=== PATIENT | female | born 1985 ===

== ENCOUNTER 2019-05-19 15:38 | Outpatient (CLI) | payer BC, SELFPAY ==
[2019-05-19 17:06] LABS: HCG Quant, Pregnancy 183 mIU/mL (1-3)
== END 2019-05-19 15:58 ==
PROVIDERS: Visit Provider Nurse Practitioner Women's Health
DX: O20.9 Hemorrhage in early pregnancy, unspecified (principal)
CPT/HCPCS: 36415; 86850; 86900; 86901; 84702

== ENCOUNTER 2019-05-23 09:03 | Outpatient (CLI) | payer BC, SELFPAY ==
[2019-05-23 10:26] LABS: HCG Quant, Pregnancy 2361 mIU/mL (1-3)
== END 2019-05-23 09:23 ==
PROVIDERS: Visit Provider Nurse Practitioner Women's Health
DX: O20.9 Hemorrhage in early pregnancy, unspecified (principal)
CPT/HCPCS: 36415; 84702

== ENCOUNTER 2019-07-01 14:25 | Outpatient (CLI) | payer BC, SELFPAY ==
[2019-07-01 14:55] LABS: Abs Immature Grans 0.04 k/cumm (0.0-0.09); Absolute Basophil Count 0.02 k/cumm (0.0-0.2); Absolute Eosinophil Count 0.25 k/cumm (0.0-0.7); Absolute Lymphocyte Count 1.18 k/cumm (1.2-3.4); Absolute Monocyte Count 0.76 k/cumm (0.11-0.7); Absolute Neutrophil Count 7.61 k/cumm (1.2-6.7); Basophils % 0.2; Eosinophils % 2.5; HCT 40.3 % (36.0-46.0); HGB 13.6 g/dL (12.0-15.5); Immature Grans % 0.4; Mean Corp. HGB Concentration 33.7 g/dL (32.0-36.0); Mean Corpuscular Hemoglobin 29.8 pg (27.0-33.0); Mean Corpuscular Volume 88.4 fL (80-95); Mean Platelet Volume 9.3 fL (8.0-11.0); Monocytes % 7.7; Neutrophils % 77.2; Platelet Count 332 x1000/uL (130-400); RBC 4.56 m/cumm (4.00-5.20); RBC Distribution Width 13.4 % (11.7-14.6); White Blood Cell Count 9.86 k/cumm (4.4-10.8)
[2019-07-01 17:03] LABS: TSH (W/Ref FT4) 1.67 uIU/mL (0.36-3.74)
[2019-07-01 18:22] LABS: *AMPHETAMINES SCREEN URINE Negative (Negative); *BARBITURATES SCREEN URINE Negative (Negative); *BENZODIAZEPINES SCREEN URINE Negative (Negative); Cannabinoids THC Negative (Negative); Cocaine Screen,Urine Negative (Negative); METHADONE URINE SCREEN Negative (Negative); OPIATES URINE SCREEN Negative (Negative)
[2019-07-01 18:23] LABS: Tricyclic Antidepressants Negative (Negative)
[2019-07-02 10:08] LABS: Hepatitis B Surface Ag Negative (NEGAT)
[2019-07-02 10:51] LABS: Hepatitis C Ab w Rflx HCV PCR Negative (NEGAT)
[2019-07-02 11:00] LABS: HIV-1/2 Ag & Ab Screen Negative (NEGAT)
[2019-07-02 12:15] LABS: Rubella IgG Ab (UVM) Positive; Syphilis Serology (RPR) Negative (Negative); Varicella IgG Antibody Positive
[2019-07-02 14:51] LABS: Chlamydia Result Negative; GC Result Negative; Specimen Description CERVIX
[2019-07-05 14:59] LABS: Buprenorphine Negative; Norbuprenorphine Negative
== END 2019-07-01 14:45 ==
PROVIDERS: Visit Provider Advanced Practice Midwife
DX: Z34.91 Encounter for supervision of normal pregnancy, unspecified, first trimester (principal); Z11.59 Encounter for screening for other viral diseases; Z11.4 Encounter for screening for human immunodeficiency virus [HIV]; Z11.3 Encounter for screening for infections with a predominantly sexual mode of transmission
CPT/HCPCS: 36415; 80055; 80307; 86787; 86803; 87340; 87389; 87491; 87591; 84443; 86592; 86762; 87086; 87480; 87510; 87660

== ENCOUNTER 2019-07-08 11:17 | Outpatient (CLI) | payer BC, SELFPAY ==
[2019-07-08 11:37] LABS: Kit/Specimen SENT
[2019-07-14 17:56] LABS: Specimen WB Whole Blood
[2019-07-22 17:58] LABS: Result Summary NEGATIVE; Specimen WB Whole Blood
== END 2019-07-08 11:37 ==
PROVIDERS: Visit Provider Obstetrics & Gynecology
DX: Z34.91 Encounter for supervision of normal pregnancy, unspecified, first trimester (principal); Z36.89 Encounter for other specified antenatal screening
CPT/HCPCS: 36415; 81329; 81220

== ENCOUNTER 2019-07-11 10:06 | Outpatient (CLI) | payer BC, SELFPAY ==
[2019-07-19 15:14] LABS: Misc Referral (MAYO) See Comments
== END 2019-07-11 10:26 ==
PROVIDERS: Visit Provider Obstetrics & Gynecology
DX: Z34.91 Encounter for supervision of normal pregnancy, unspecified, first trimester (principal)
CPT/HCPCS: 81255

== ENCOUNTER 2019-08-11 01:16 | Outpatient (CLI) | payer BC, SELFPAY | END 2019-08-11 01:36 | PROVIDERS: PCP Nurse Practitioner Family; Visit Provider Obstetrics & Gynecology | DX: R01.1 Cardiac murmur, unspecified (principal); I35.0 Nonrheumatic aortic (valve) stenosis | CPT/HCPCS: 93306 ==

== ENCOUNTER 2019-08-26 00:23 | Outpatient (CLI) | payer BC, SELFPAY ==
--- NOTE | 2019-08-26 15:45 | DI.US_ITS ---
EXAM: US OB 2-3 TRIMESTER CLINICAL HISTORY: Z34.90 SUPERVISION NORMAL TECHNIQUE: Ultrasound performed using standard protocol. COMPARISON: US OB transvaginal from 05/27/2019 FINDINGS: The fetus is in variable position. The placenta is posterior. The biometric measurements correspon d to 19 weeks 0 days, consistent with previous dating. The amniotic fluid appears visually normal. No abnormalities are seen. IMPRESSION: survey is within normal limits.
== END 2019-08-26 00:43 ==
PROVIDERS: PCP Nurse Practitioner Family; Visit Provider Obstetrics & Gynecology
DX: Z34.92 Encounter for supervision of normal pregnancy, unspecified, second trimester (principal)
CPT/HCPCS: 76805

== ENCOUNTER 2019-10-29 07:59 | Outpatient (CLI) | payer BC, SELFPAY ==
[2019-10-29 11:06] LABS: Absolute Eosinophil Count 0.22 k/cumm (0.0-0.7); Absolute Monocyte Count 0.65 k/cumm (0.11-0.7); Absolute Neutrophil Count 9.33 k/cumm (1.2-6.7); Basophils % 0.3; Eosinophils % 1.9; HCT 34.7 % (36.0-46.0); HGB 11.5 g/dL (12.0-15.5); Immature Grans % 0.9; Lymphocytes % 11.2; Mean Corp. HGB Concentration 33.1 g/dL (32.0-36.0); Mean Corpuscular Hemoglobin 30.4 pg (27.0-33.0); Mean Corpuscular Volume 91.8 fL (80-95); Mean Platelet Volume 9.3 fL (8.0-11.0); Monocytes % 5.6; Neutrophils % 80.1; Platelet Count 271 x1000/uL (130-400); RBC 3.78 m/cumm (4.00-5.20); RBC Distribution Width 14.1 % (11.7-14.6); White Blood Cell Count 11.65 k/cumm (4.4-10.8)
[2019-10-29 11:07] LABS: Absolute Basophil Count 0.03 k/cumm (0.0-0.2)
[2019-10-29 11:10] LABS: Glucose,1 Hr (Glucola) 116 mg/dL (80-140)
== END 2019-10-29 08:19 ==
PROVIDERS: PCP Nurse Practitioner Family; Visit Provider Obstetrics & Gynecology
DX: Z34.92 Encounter for supervision of normal pregnancy, unspecified, second trimester (principal)
CPT/HCPCS: 36415; 82950; 85025

== ENCOUNTER 2019-11-15 08:32 | Outpatient (CLI) | payer BC, SELFPAY | END 2019-11-15 08:52 | PROVIDERS: PCP Nurse Practitioner Family; Visit Provider Internal Medicine Cardiovascular Disease | DX: R01.1 Cardiac murmur, unspecified (principal); I35.0 Nonrheumatic aortic (valve) stenosis; Z3A.30 30 weeks gestation of pregnancy | CPT/HCPCS: 93005; 93010 ==

== ENCOUNTER 2019-12-08 01:22 | Outpatient (CLI) | payer BC, SELFPAY ==
--- NOTE | 2019-12-08 07:29 | DI.US_ITS ---
APPROVED REPORT EXAM: Comprehensive 2D, Doppler, and color-flow Echocardiogram Patient Location: Out-Patient Sales Service Representative: Park Ogden RDCS (AE) Rhythm: NSR Indications: bicuspid aortic valve. Congenital insufficiency of aortic valve. Q23.1 Conclusion Left Ventricle : The left ventricle is normal size. There is normal left ventricular wall thickness. The left ventricular systolic function is normal. The left ventricular ejection fraction is within th e normal range. There is normal LV segmental wall motion. The left ventricular diastolic function is normal. LVEF is estimated to be 60-65%. Right Ventricle : The right ventricle is normal size. The right ventricular systolic function appears normal. Atria : Left atrium is very mildly dilated. The right atrium size is normal. Aortic Valve : Aortic valve is bicuspid. Trivial aortic regurgitation. Mild to moderate aortic stenos is (Mean Gradient 18mmHg). Mitral Valve : Mitral valve leaflets aremildly thickened. Mild mitral regurgitation. No evidence of m itral valve stenosis. Tricuspid Valve : The tricuspid valve is normal in structure. Mild to moderate tricuspid regurgitatio n. Great Vessels : IVC is normal in size and collapses >50% with inspiration. Estimated RVSP is 20-23 m mHg. The aortic root is normal in size. Compared to echocardiogram dated 08/11/2019: Patient's aortic valve gradient has increased slightly fr om 13 mmHg to 18 mmHg. Otherwise there are no significant changes. Wall motion Left Ventricle The left ventricle is normal size. The left ventricular systolic function is normal. The left ventric ular ejection fraction is within the normal range. There is normal left ventricular wall thickness. T here is normal LV segmental wall motion. The left ventricular diastolic function is normal. LVEF is e stimated to be 60-65%. Right Ventricle The right ventricle is normal size. The right ventricular systolic function appears normal. Atria Left atrium is very mildly dilated. The right atrium size is normal. Aortic Valve Aortic valve is bicuspid. Mild to moderate aortic stenosis (Mean Gradient 18mmHg). Trivial aortic reg urgitation. Mitral Valve Mitral valve leaflets aremildly thickened. No evidence of mitral valve stenosis. Mild mitral regurgit ation. Tricuspid Valve The tricuspid valve is normal in structure. Mild to moderate tricuspid regurgitation. Pulmonic Valve Mild to pulmonic regurgitation. Great Vessels The aortic root is normal in size. IVC is normal in size and collapses >50% with inspiration. Estimat ed RVSP is 20-23 mmHg. Pericardium There is no pericardial effusion. 2D Dimensions IVSd 0.95 cm F: 0.6-1.0 LV EDV A2C 90.6 mL PWd 0.95 cm F: 0.6 - 1.0 LV EDV A4C 105.9 mL LVDd 4.60 cm F: 3.8 - 5.2 LA Volume Index Biplane 29.4 mL/m2 LVDs 3.05 cm F: 2.2 - 3.5 LA Area A4C 19.44 cm2 Aortic Root 2.70 cm F: 2.7 - 3.3 LA Area A2C 15.39 cm2 RA Area A4C 15.38 cm2 EF AP4 64.9 % LVOT 1.95 cm (M/F) 1.5-2.5 EF AP2 64.8 % Ascending Aorta 3.00 cm F: 2.3 - 3.1 EF BP 64.5 % LVEF (Teich) 62.1 % IVC 1.29 cm LVEF (Grayson's) 64.53 % F: 54 - 74 TAPSE 2.24 cm (M/F) <1.7 LV Volume 77.53 mL F: 46 - 106 LV Volume Index 45.33 mL/m2 F: 29 - 61 FS 33.35 % LV Diastology MV E' medial 0.160 (>0.07 m/s) E/A Ratio 2.2 LV E/e MED 6.75 (<14) TR Peak Velocity 2.27 m/s MV E' lateral 0.203 (>0.1 m/s) LV E/e LAT 5.30 (<14) LA vol/ BSA A2C s A-L 23.3 mL/m2 LA vol/ BSA A4C s A-L 37.1 mL/m2 Aortic Valve LVOT Area 3.02 cm2 AoV Area Vmax 1.25 cm2 LVOT Vmax 1.15 m/s AoV Area/ BSA (Vmax) 0.73 cm2/m2 LVOT Mean Ernie. 0.83 m/s LOYD Mean Ernie. 1.24 cm2 LVOT Peak Gr. 5.3 mmHg LOYD Mean Ernie. Index 0.73 cm2/m2 LVOT Mean Gr. 3.0 mmHg LVOT VTI 0.267 m AoV Vmax 2.78 (0.5-1.3 m/s) AoV Mean Ernie. 2.00 m/s AoV Peak Grad 30.8 mmHg LVOT SV 80.72 mL AoV Mean Grad 18.0 (<5 mmHg) AoV VTI 0.611 (0.18-0.25 m) VTI Ratio 0.43 AoV Area VTI 1.32 (2.5-4.5 cm2) AoV Area/ BSA (VTI) 0.77 cm/m2 Mitral Valve MV E Max Ernie. 1.09 (0.4-1.3 m/s) RVOT Peak Gr. 2.84 mmHg MV A Velocity 0.50 (0.4-1.3 m/s) RVOT Mean Gr. 1.70 mmHg E/A Ratio 2.00 MV Decel. Time 206 (160-240 msec) MV PHT 60 msec MVA PHT 3.65 cm2 PV Peak Velocity 1.04 (0.5-1.5 m/s) RVOT Peak Ernie. 0.84 m/s RVOT VTI 0.167 m Tricuspid Valve TR P. Gradient 20.6 mmHg TV Regurg Vmax 2.27 m/s RAP Estimate 3.00 mmHg RVSP 23.6 mmHg
== END 2019-12-08 01:42 ==
PROVIDERS: PCP Nurse Practitioner Family; Visit Provider Internal Medicine Cardiovascular Disease
DX: Q23.1 Congenital insufficiency of aortic valve (principal); I35.0 Nonrheumatic aortic (valve) stenosis; I36.1 Nonrheumatic tricuspid (valve) insufficiency
CPT/HCPCS: 93306

== ENCOUNTER 2019-12-10 13:03 | Outpatient (REF) | payer BC, SELFPAY | END 2019-12-10 13:23 | LOC: LBN 13:03 | PROVIDERS: PCP Nurse Practitioner Family; Visit Provider Obstetrics & Gynecology | DX: Z34.93 Encounter for supervision of normal pregnancy, unspecified, third trimester (principal) | CPT/HCPCS: 87086 ==

== ENCOUNTER 2019-12-14 06:48 | Inpatient (IN) | payer BC, SELFPAY ==
--- NOTE | 2019-12-14 08:09 | W.PM.HP.N ---
Date of service: 12/14/19 Time of Service: 08:09 Assessment and Plan Assessment and plan (1) labor in second trimester with delivery: Status: Acute History of Present Illness History of Present Illness Chief Complaint: Premature rupture membranes at 34 W3D Narrative: Patient is a 34-year-old G1, P0 female currently 30 4W 3D EGA with a KATHY of 01/22/2020 who [facility] 5 weeks EGA. Patient called the answering service this morning to report a gush of fluid her clear amniotic fluid after voiding. On presentation to the center she was actively elsa with small amount of bloody show and obvious rupture of membranes. On physical exam she is 5 cm dilated 100% effaced -1 station. heart rate tracing was category 1 contractions every 2 to 3 minutes. Pediatric provider notified. Patient is in active labor with advanced cervical dilatation and transport to a tertiary care center is not recommended at this time. course she had a total of 10 visits, total weight gain 18 pounds, first trimester blood pressure 100/70: Third to measure blood pressure 80/60. Issues this ; 1) heart murmur she had a maternal echo that showed a bicuspid aortic valve with mild to moderate aortic stenosis no evidence of a Dialyte dilated aortic root or ascending aorta. Cardiology recommendation was to have delivery NVR H if the second internal echo was unchanged. [place] [facility] [place]. 2) normal testing for aneuploidy SMA CF. Serology and toxicology testing negative she is Rh+ antibody negative GBS RV CX was not performed until today. FOR[facility]LY [facility], [facility] Medical History (Updated 12/14/19 @ 17:27 by Ava Guy MD) Family history of thyroid disease in father (Acute) Heart murmur (Acute) Bicuspid aortic valve, Echo and ECG 2014 Migraine (Chronic) Takes NSAIDs prn labor in second trimester with delivery (Acute) Family History (Updated 07/01/19 @ 14:52 by Elda Mendosa CNM) Mother Thyroid disorder Maternal Aunt Thyroid disorder Maternal Aunt Thyroid disorder Paternal Aunt Thyroid disorder Social History (Updated 12/14/19 @ 17:15 by Ava Guy MD) Smoking/Tobacco Use Status: Never Alcohol Intake: current Alcohol Intake frequency: holidays/special occasions only Drug use: Never Household members: spouse and other Details: H-Raoul. Number of Children: 0 Education Level: college current occupation: pharmacist Sexually active: Yes Do you think of yourself as: straight/heterosexual Current gender identity: female What type of physical activity do you participate in: none Female Reproductive History Menstrual control method: none History History 1 Para 0 Hx # Term Pregnancies Multiple births Hx # Pregnancies Ectopic pregnancies AB induced Hx Number of Living Children AB spontaneous Meds Home Medications and Allergies Home Medications Medication Instructions Recorded Confirmed Type prenat.vits,aj,wet-sall-mglky 1 tab PO DAILY 05/19/19 12/10/19 History clobetasol 0.05 % topical ointment 1 applic TP BID PRN gm 11/15/19 12/10/19 History nystatin-triamcinolone 100,000 1 applic TP BID PRN gm 11/15/19 12/10/19 History unit/gram-0.1 % topical ointment Allergies Allergy/AdvReac Type Severity Reaction Status Date / Time Cephalosporins Allergy Hives Verified 12/10/19 10:12 clindamycin Allergy Skin Rash Verified 12/10/19 10:12 Penicillins Allergy Skin Rash Verified 12/10/19 10:12 Exam Const General: no acute distress (tolerating contractions.) Nutritional Appearance: average body habitus Orientation: alert, awake and oriented x3 Resp Effort & Inspection: normal respiratory effort Auscultation: clear to auscultation bilaterally Cardio Rate: regular rate Rhythm: regular rhythm Speculum Exam - Cervix: cervical os open OB/External & Speculum: external exam normal and cervical os open Manual OB Exam: dilated 5, effaced fully and station '+1 Amniotic Fluid: clear Back/Spine/Pelvis Back: no CVA tenderness Skin General skin exam: no rashes or lesions noted Neuro DTR's: Rt Patellar: 1+ and Lt Patellar: 1+ Extrem General: normal to inspection, full ROM and normal capillary refill Psych Mental Status: mental status grossly normal Results Labs Result diagrams: 12/14/19 08:09
[2019-12-14 08:12] LABS: ROM Plus Positive
[2019-12-14] MEDS: Betamet Acet/Betamet Na Ph Inj. 30 MG/5 ML 12 MG IM (08:15)
[2019-12-14] MEDS: Lactated Ringers 1,000 ML 150 ML IV (08:17)
[2019-12-14 08:22] LABS: HCT 35.2 % (36.0-46.0); HGB 11.8 g/dL (12.0-15.5); Mean Corp. HGB Concentration 33.5 g/dL (32.0-36.0); Mean Corpuscular Hemoglobin 30.3 pg (27.0-33.0); Mean Corpuscular Volume 90.5 fL (80-95); Mean Platelet Volume 9.5 fL (8.0-11.0); Platelet Count 275 x1000/uL (130-400); RBC 3.89 m/cumm (4.00-5.20); RBC Distribution Width 13.5 % (11.7-14.6); White Blood Cell Count 13.47 k/cumm (4.4-10.8)
--- NOTE | 2019-12-14 10:15 | PLAC_PTH ---
PATIENT: Anya Mustafa LOC: OBS U#:[id number] AGE/SX: 34/F ROOM: OBS.301 RE12/14/[address]: Ava Guy : 1985 BED: A DIS: 12/16/2019 SPEC #: [id number] RECD: 12/14/19 12:32 STATUS: ANALISA REQ #: [id number] BIANCA: 12/14/19 10:[address]: Ava Guy DEPT: Surgical Specimen RECD BY: Jennifer Belcher ENTERED: 12/14/19 12:33 SP TYPE: PLAC OTHR DR: None Tissues: 1 - PLACENTA (3RD TRIMESTER) Procedures: GROSS AND MICRO LEVEL 5 Comments: [id number]
[2019-12-14] MEDS: Ibuprofen 600 MG TAB PO ×3 (12:14→20:29)
[2019-12-14] MEDS: Acetaminophen 325 MG TAB 650 MG PO (12:15)
[2019-12-14] MEDS: Lidocaine 1% Multi-Dose 20 ML VIAL (15:57)
--- NOTE | 2019-12-16 09:41 | W.PM.DS.N ---
Date of service: 12/16/19 Time of Service: 09:41 DS: Diagnosis Discharge Diagnosis (1) labor without delivery, third trimester: Status: Acute Discharge Plan Disposition Patient Disposition: HOME Condition: Good Discharge Details Reason For Visit: RULE OUT RUPTURE OF MEMBRANES Admit Date/Time: 12/14/19 10:56 Admit Provider: Ava Guy Attending Provider: Ava Guy Primary Care Provider: None,None Hospital Course Hospital Course: Patient was admitted in active labor on the morning of 12/14/2019. She went on to deliver vaginally a male named Kendellram of a second-degree perineal laceration. A Kiwi cup vacuum was used to bring the infant from a +2 to +3 station after 1 hour of maternal expulsive efforts had not brought the vertex further into the canal. After that she was able to push for another hour and have a successful vaginal delivery. If it remains hospitalized secondary to prematurity issues. Patient will board with the continue to be supported with breast-feeding and caring for her . Plan is [facility] and she will have periodic informal follow-ups during her hospital stay caring for her infant. She does not require any postoperative analgesia. Home Meds and New Rx's Prescriptions: No Action prenat.vits,aj,kjg-cgyt-bybni tablet 1 tab PO DAILY RF: 0 clobetasol 0.05 % ointment 1 applic TP BID PRNRF: 0 nystatin-triamcinolone 100,000-0.1 unit/gram-% ointment 1 applic TP BID PRNRF: 0 Discharge Instructions Stand Alone Forms: BC Instructions, BC Post Vaginal Deliver Activity:: Activity as Tolerated Equipment/Supplies:: No Equipment Needed Diet:: As Tolerated Discharge Orders Discharge Orders: Discharge Order (Routine); Ordered 12/16/19 Ordered By: Ava Guy DS: Summary Status at Discharge Functional status at discharge: independent ambulation Overall status at discharge: patient is progressing back to baseline Mental Status: mental status grossly normal Speech and Movement: speech and movement normal Mood: congruent mood Affect: normal affect Exam Const General: comfortable Nutritional Appearance: overweight Orientation: awake and oriented x3 Resp Effort & Inspection: normal respiratory effort Auscultation: clear to auscultation bilaterally Cardio Rate: regular rate Rhythm: regular rhythm GI Palpation: soft, no hepatosplenomegaly and other Rectal Exam - female: deferred Other: Fundal height 3 cm below umbilicus External Female Exam: external appearance normal, no external swelling and no lesions Skin General skin exam: no rashes or lesions noted Extrem General: normal to inspection Psych Appearance: grossly normal Mental Status: mental status grossly normal Speech and Movement: speech and movement normal Mood: congruent mood Affect: normal affect DS: Data Vitals/I&O Vitals and I&O: Vital Signs Pain Level 3 12/14/19 12:14 Intake & Output 12/15/19 12/15/19 12/16/19 11:59 23:59 11:59 Weight 168 lb Data Completed and Pending Labs on day of discharge: Labs from last 24 hours 12/16/19 08:46 Patient ABO/Rh Cancelled Direct Antiglob Test Cancelled 12/14/19 07:50 Endocervix Group B Streptococcus Screen (MARQUISE) - Pending Preliminary micro results at discharge 12/14/19 07:50 Group B Streptococcus Screen (MARQUISE) - Pending Endocervix [facility] Medical History (Updated 12/16/19 @ 09:43 by Ava Guy MD) Family history of thyroid disease in father (Acute) Heart murmur (Acute) Bicuspid aortic valve, Echo and ECG 2014 Migraine (Chronic) Takes NSAIDs prn labor without delivery, third trimester (Acute) 12/14/2019. at 30 4W 3D EGA. Family History (Updated 07/01/19 @ 14:52 by Elda Mendosa CNM) Mother Thyroid disorder Maternal Aunt Thyroid disorder Maternal Aunt Thyroid disorder Paternal Aunt Thyroid disorder Social History (Updated 12/16/19 @ 09:44 by Ava Guy MD) Smoking/Tobacco Use Status: Never Alcohol Intake: current Alcohol Intake frequency: holidays/special occasions only Drug use: Never Household members: spouse and other Details: H-Raoul, S-Ephram Number of Children: 1 Education Level: college current occupation: pharmacist Sexually active: Yes Do you think of yourself as: straight/heterosexual Current gender identity: female What is your relationship status?: Panel score (0-1 are the most socially isolated patients): 1 What type of physical activity do you participate in: none Female Reproductive History Menstrual control method: none History History 1 Para 1 Hx # Term Pregnancies Multiple births Hx # Pregnancies 1 Ectopic pregnancies AB induced Hx Number of Living Children 1 AB spontaneous Past Pregnancies Del. Date GA/Weeks # Outcome Route Wgt Sex Labor Lgth Anesthesia Location Prov Complic 12/14/19 34 Successful vaginal 4 lb 9 oz Male 4 hours AOC Delivery Date: 12/14/19 On 12/16/19 @ 09:47 Ava Guy Vacuum assisted vaginal delivery. Male Apgars 4 and 9. Placenta with marginal cord insertion. Ephram.
== END 2019-12-16 13:05 | disposition home or self-care (01) | DRG 806 ==
PROVIDERS: Admitting Provider Obstetrics & Gynecology Gynecology; Visit Provider Obstetrics & Gynecology Gynecology
DX: O60.14X0 Preterm labor third trimester with preterm delivery third trimester, not applicable or unspecified (principal); Q23.1 Congenital insufficiency of aortic valve; Z37.0 Single live birth; Q23.0 Congenital stenosis of aortic valve; O42.012 Preterm premature rupture of membranes, onset of labor within 24 hours of rupture, second trimester; Z36.85 Encounter for antenatal screening for Streptococcus B; Z3A.34 34 weeks gestation of pregnancy
CPT/HCPCS: 36415; 84112; 85027; 86850; 86900; 86901; NC; 86880; 87081; 88307; J0702; J3490

== ENCOUNTER 2020-06-21 02:39 | Outpatient (CLI) | payer BC, SELFPAY ==
[2020-06-21 16:25] LABS: D-Dimer (UVM) <200 ng/mL DDU (<=230); PTT (UVM) 35 secs (26-37)
[2020-06-22 09:28] LABS: Antithrombin 3, Funct. 117 % (85-125)
[2020-06-23 09:44] LABS: LA Cascade Summary (See Note); Silica Clotting Time 39.9 secs (30.2-48.4)
[2020-06-28 09:54] LABS: Protein C, Functional 134 % (71-199); Protein S, Functional 95 % (64-147)
== END 2020-06-21 02:59 ==
PROVIDERS: PCP Nurse Practitioner Family; Visit Provider Obstetrics & Gynecology Gynecology
DX: Z87.51 Personal history of pre-term labor (principal)
CPT/HCPCS: 36415; 81240; 81241; 85300; 85303; 85306; 85610; 85613; 85730; 85732; 86147; 85240; 85379

== ENCOUNTER 2020-09-29 02:01 | Outpatient (CLI) | payer BC, SELFPAY ==
[2020-09-29 09:48] LABS: TSH 1.39 uIU/mL (0.36-3.74)
[2020-09-30 18:15] LABS: Tissue Transglutaminase Ab IgA <1.2 U/mL
[2020-10-12 17:05] LABS: IgA 213 mg/dL (61-356); IgG 1260 mg/dL (767-1590)
== END 2020-09-29 02:21 ==
PROVIDERS: PCP Nurse Practitioner Family; Visit Provider Internal Medicine Gastroenterology
DX: K58.9 Irritable bowel syndrome, unspecified (principal)
CPT/HCPCS: 36415; 82784; 83516; 84443

== ENCOUNTER 2021-01-22 00:47 | Outpatient (CLI) | payer BC, SELFPAY ==
--- NOTE | 2021-01-22 07:00 | DI.MAMMO_ITS ---
EXAM: MG MAMMO DIAGNOSTIC BI CLINICAL HISTORY: breast rash - bilateral. finished 10/2020,r23.4. TECHNIQUE: Unilateral spot mammographic images were obtained with 3D [employer] and util izing computer aided detection (CAD). COMPARISON: None. This is a baseline mammogram on a 35-year-old patient who just finished breast fe eding. She has occasional breast rashes and nonbloody bilateral discharge. She does not feel a lump . FINDINGS: There are no CAD designations There are no spiculated masses nor malignant-appearing microcalcification groups in either breast. T here is no significant architectural distortion or skin thickening-traction. IMPRESSION: Moderately dense fibroglandular tissue. No obvious radiographic evidence of malignancy. If clinically indicated this patient [facility] She is apparently quite concerned. BI-RADS Category 2 - Benign Findings Breast Density - Category C - Heterogeneously dense Breast density Category C or D implies that the patient has dense breast tissue. Dense breast tissue can make it harder to find cancer on a mammogram. Dense breast tissue is also associated with an incr eased risk of breast cancer. This information about the result of the mammogram report was provided to the patient to raise their awareness. Use this report when you speak with the patient about their risks for breast cancer, which includes their family history. At that time, you may recommend additional screening tests (Ultrasoun d or MRI) as these tests may add significant information. A negative radiographic report should not delay biopsy if a dominant or clinically suspicious mass is present. Up to ten percent of cancers are not identified on mammography. A negative report may reinforce clinical impression. Adenosis and dense breasts may obscure an underlying neoplasm. False positive reports average 6 to 10%. Patient will receive a letter notifying them of these results.
== END 2021-01-22 01:07 ==
PROVIDERS: PCP Nurse Practitioner Family; Visit Provider Obstetrics & Gynecology Gynecology
DX: R21 Rash and other nonspecific skin eruption (principal); N64.59 Other signs and symptoms in breast; Z12.31 Encounter for screening mammogram for malignant neoplasm of breast
CPT/HCPCS: 77062; 77066; G0279

== ENCOUNTER 2021-05-25 03:07 | Outpatient (CLI) | payer BC, SELFPAY ==
--- NOTE | 2021-05-25 07:00 | DI.US_ITS ---
APPROVED REPORT EXAM: Comprehensive 2D, Doppler, and color-flow Echocardiogram Patient Location: Out-Patient Safety Compliance Specialist: Theresa Grimes RDCS (AE) Indications: Bicuspid aortic valve, Murmur Other Information Study Quality: Good Conclusion Left Ventricle : The left ventricle is normal size. The left ventricular ejection fraction is within the normal range. There is normal left ventricular wall thickness. There is normal LV segmental wall motion. The left ventricular diastolic function is normal. LVEF is 60%. Right Ventricle : The right ventricle is normal size. The right ventricular systolic function is norm al. The RVSP is 20 mmHg. Atria : The left atrium size is normal. The right atrium size is normal. Aortic Valve : Aortic valve is bicuspid. No aortic regurgitation is present. No hemodynamically signi ficant valvular aortic stenosis. Great Vessels : The aortic root is normal in size. The ascending aorta is normal in size. Aortic arch is normal in caliber. IVC is normal in size and collapses >50% with inspiration. Compared to echocardiogram from 12/08/2019, the mean gradient has decreased from 18 millimeters mercur y to 12 mmHg. This is similar to her study dated from 08/11/2019. Wall motion Left Ventricle The left ventricle is normal size. The left ventricular ejection fraction is within the normal range. There is normal left ventricular wall thickness. There is normal LV segmental wall motion. The left ventricular diastolic function is normal. There is no ventricular septal defect visualized. LVEF is 6 0%. Right Ventricle The right ventricle is normal size. The right ventricular systolic function is normal. The RVSP is 20 mmHg. Atria The left atrium size is normal. The right atrium size is normal. The interatrial septum is intact wit h no evidence for an atrial septal defect. Aortic Valve Aortic valve is bicuspid. No hemodynamically significant valvular aortic stenosis. No aortic regurgit ation is present. Mitral Valve The mitral valve is normal in structure. No evidence of mitral valve stenosis. Trace mitral regurgita tion. Tricuspid Valve The tricuspid valve is normal in structure. There is no tricuspid valve stenosis. Trace to mild tricu spid regurgitation. Pulmonic Valve The pulmonary valve is normal in structure. There is no pulmonic valvular stenosis. There is no pulmo romeo valvular regurgitation. Great Vessels The aortic root is normal in size. The ascending aorta is normal in size. Aortic arch is normal in ca liber. IVC is normal in size and collapses >50% with inspiration. Pericardium There is no pericardial effusion. 2D Dimensions IVSD d PLAX 0.71 cm F: 0.6-1.0 LV Vol A2C d MOD 90.3 mL LVPW d PLAX 0.71 cm F: 0.6 - 1.0 LV Vol A4C d MOD 93.5 mL LVID d PLAX 4.21 cm F: 3.8 - 5.2 LA vol/ BSA A2C s A-L 19.5 mL/m2 LVDs 2.85 cm F: 2.2 - 3.5 LA vol/ BSA A4C s A-L 17.9 mL/m2 Ao Root d 2.52 cm F: 2.7 - 3.3 LA Vol/ BSA Biplane s A-L 19.0 mL/m2 RA Area A4C 8.72 cm2 LA Area A4C s MOD 12.77 cm2 RA Vol/ BSA A4C s A-L 11.1 mL/m2 LA Area A2C s MOD 13.10 cm2 Ao Asc Diam d 3.08 cm F: 2.3 - 3.1 LV EF A4C MOD 60.7 % LV EF Teichholz 60.7 % LV EF A2C MOD 60.2 % LVEF (Grayson's) 59.51 % F: 54 - 74 LV EF Biplane MOD 59.5 % LV Volume 73.75 mL F: 46 - 106 SV 54.68 mL LV Volume Index 44.69 mL/m2 F: 29 - 61 SV Index 33.10 mL/m2 LV Vol Biplane MOD 91.9 mL FS 32.10 % M-Mode TAPSE 2.11 cm (M/F) >1.7 LV Diastology MV E' medial 0.121 (>0.07 m/s) E/A Ratio 2.0 LV E/e MED 7.40 (<14) MV E Vmax 0.90 (0.4-1.3 m/s) MV E' lateral 0.162 (>0.1 m/s) MV A Vmax 0.45 (0.4-1.3 m/s) LV E/e LAT 5.50 (<14) MV E/A Ratio 1.94 MV E/E' medial 7.42 MV E/E' lateral 5.54 Aortic Valve LVOT Area 2.63 cm2 AoV Area Vmax 1.29 cm2 LVOT Vmax 1.12 m/s AoV Area/ BSA (Vmax) 0.78 cm2/m2 LVOT Mean Ernie. 0.78 m/s LODY Mean Ernie. 1.21 cm2 LVOT Peak Grad 5.0 mmHg LOYD Mean Ernie. Index 0.73 cm2/m2 LVOT Mean Grad 2.8 mmHg LVOT VTI 0.252 m LVOT Diam s 1.80 cm AoV Vmax 2.28 m/s Velocity Ratio 0.49 AoV Mean Ernie. 1.69 m/s AoV Peak Grad 20.8 mmHg LVOT SV 66.22 mL AoV Mean Grad 12.5 mmHg AoV VTI 0.474 m AoV Area VTI 1.40 cm2 AoV Area/ BSA (VTI) 0.85 cm/m2 Mitral Valve MV DT 230 (160-240 msec) MV PHT 67 msec MV Area PHT 3.29 cm2 MV VTI 0.366 m MV VTI Annulus 0.388 m MV Area VTI 1.93 (4.0-6.0 cm2) Pulmonary Valve PV Vmax 1.14 (0.5-1.5 m/s) RVOT Peak Gr. 2.32 mmHg PV Peak Grad 5.2 mmHg RVOT Mean Gr. 1.10 mmHg PV Mean Grad 2.8 mmHg RVOT VTI 0.179 m PV VTI 0.247 m RVOT Vmax 0.76 m/s Tricuspid Valve TR Peak Grad 17.6 mmHg TR Vmax 2.10 m/s RA Pressure 3.00 mmHg RVSP (TR) 20.7 mmHg
== END 2021-05-25 03:27 ==
PROVIDERS: PCP Nurse Practitioner Family; Visit Provider Internal Medicine Cardiovascular Disease
DX: R01.1 Cardiac murmur, unspecified (principal); Q23.1 Congenital insufficiency of aortic valve
CPT/HCPCS: 93306

== ENCOUNTER 2021-11-29 17:33 | Outpatient (REF) | payer BC, SELFPAY | END 2021-11-29 17:34 | disposition home or self-care (01) | LOC: LBN 17:33 | PROVIDERS: PCP Nurse Practitioner Family; Visit Provider Obstetrics & Gynecology Gynecology | DX: R30.0 Dysuria (principal) | CPT/HCPCS: 87086 ==

== ENCOUNTER 2022-01-10 10:54 | Outpatient (REF) | payer BC, SELFPAY ==
--- NOTE | 2022-01-10 10:30 | PAPFT_PTH ---
PATIENT: Anya Mustafa LOC: [facility] U#:[id number] AGE/SX: 36/F ROOM: RE01/10/[address]: Ava Guy : 1985 BED: DIS: 01/10/2022 SPEC #: [id number] RECD: 01/10/22 12:53 STATUS: ANALISA REQ #: [id number] BIANCA: 01/10/22 10:[address]: Ava Guy DEPT: [facility] Cytology RECD BY: Jennifer Belcher ENTERED: 01/10/22 12:53 SP TYPE: PAPFT OTHR DR: Jaime Mcintyre Tissues: 1 - CX/ENDOCX FOR PAP SMEARS Procedures: PAP THIN PREP/[facility] Screening HPV DNA PROBE Comments: [id number]
== END 2022-01-10 10:55 | disposition home or self-care (01) ==
LOC: LBN 10:54
PROVIDERS: PCP Nurse Practitioner Family; Visit Provider Obstetrics & Gynecology Gynecology
DX: Z12.4 Encounter for screening for malignant neoplasm of cervix (principal); Z11.51 Encounter for screening for human papillomavirus (HPV)
CPT/HCPCS: 88142; 87624

== ENCOUNTER 2023-01-17 05:16 | Emergency (ER) | payer BC, SELFPAY ==
[2023-01-17 05:22] VITALS: BP 119/91; PULSE 77; RESP 16; TEMP 36.6; O2SAT 98
--- NOTE | 2023-01-17 05:39 | ED.GENADUL_ITS ---
Discharge Plan Discharge Details Chief Complaint: Abd Prob Clinical Impression: Abdominal pain, RUQ Primary Care Provider: Jaime Muñoz ED Provider: Julito Olivas Home Meds and New Rx's Prescriptions: No Action nitrofurantoin monohyd/m-cryst 100 mg capsule 100 mg PO Q12H 5 Days Qty: 10 5RF Rx Instructions: must administer with a meal/food clobetasol 0.05 % ointment 1 applic TP BID PRN nystatin-triamcinolone 100,000-0.1 unit/gram-% ointment 1 applic TP BID PRN prenat.vits,aj,djm-zxes-zltxr Tablet 1 tab PO DAILY norgestimate-ethinyl estradiol [Iel-Xc-Nlqihpedh] 0.18/0.215/0.25 mg-25 mcg tablet 1 tab PO DAILY Qty: 84 4RF Medical Decision Making This is a pleasant 37-year-old female with a past medical history of a bicuspid aortic valve, as well as chronic recurrent right upper quadrant abdominal pain. For the past 7 years the patient has been having intermittent symptoms, usually once a year, she describes it as sharp and achy and full which developed suddenly in the right upper quadrant. Sometimes related to food and sometimes independent. She has had previous HIDA scan, CT scans, and x-rays which were negative for abnormality. Tonight her initial symptoms began about 15 hours ago, but then resolved on their own shortly thereafter. And then again late this evening 1 or 2 hours prior to arrival the symptoms recurred. She came to the ER for further assessment. She admits to nausea but no vomiting. She denies any diarrhea. She has been having regular bowel movements including tonight. No other complaints at this time. No other modifying factors. Exam demonstrates a well-appearing female, no signs of an acute surgical abdomen whatsoever. Bowel sounds present, no distention, no pain to McBurney's point, negative Pavon sign. Patient looks clinically well. Suspicion is highest for intermittent biliary colic. Porphyria is also of concern but less likely. Symptoms inconsistent with obstruction. Symptoms appear clinically inconsistent with acute cholecystitis. We will treat the patient's pain, get laboratory work-up, monitor closely and reassess. 7:21 AM Laboratory work-up is returned unremarkable, no significant abnormalities. Patient's pain is improved by over 60%. I had a long discussion with the patient regarding risks and benefits of additional imaging, including radiographic versus ultrasounds. I do not see evidence of an acute surgical abdomen, and I do feel that the likelihood of finding a significant abnormality on these tests are limited. We did discuss potential of endometriosis, and the pathway for further evaluation of this as well. Through shared decision-making process however patient would like to pursue ultrasound of the gallbladder, which I do think is reasonable. We will order this, for further assessment. Otherwise I do feel that the patient is clinically stable for continued outpatient follow-up otherwise. Patient will be signed out to my colleague for follow-up on labs and imaging HPI General Date/Time Provider Initiated Documentation: 01/17/23 05:23 . HPI Narrative: This is a pleasant 37-year-old female with a past medical history of a bicuspid aortic valve, as well as chronic recurrent right upper quadrant abdominal pain. For the past 7 years the patient has been having intermittent symptoms, usually once a year, she describes it as sharp and achy and full which developed suddenly in the right upper quadrant. Sometimes related to food and sometimes independent. She has had previous HIDA scan, CT scans, and x-rays which were negative for abnormality. Tonight her initial symptoms began about 15 hours ago, but then resolved on their own shortly thereafter. And then again late this evening 1 or 2 hours prior to arrival the symptoms recurred. She came to the ER for further assessment. She admits to nausea but no vomiting. She denies any diarrhea. She has been having regular bowel movements including tonight. No other complaints at this time. No other modifying factors. Related Data Home Medications Medication Instructions Recorded Confirmed clobetasol 0.05 % topical ointment 1 applic topical BID PRN 11/15/19 01/17/23 nystatin-triamcinolone 100,000 1 applic topical BID PRN 11/15/19 01/17/23 unit/gram-0.1 % topical ointment prenat.vits,aj,vvz-algx-uetfp 1 tab PO DAILY 02/05/21 01/17/23 norgestimate 0.18 mg/0.215 mg/0.25 1 tab PO DAILY #84 tabs 12/11/21 01/17/23 mg-ethinyl estradiol 25 mcg tablet (Mxc-Qd-Xzsqjbxtx) nitrofurantoin 100 mg PO Q12H 5 days #10 caps 01/10/22 01/17/23 monohydrate/macrocrystals 100 mg capsule Previous Rx's Medication Instructions Recorded norgestimate 0.18 mg/0.215 mg/0.25 1 tab PO DAILY #84 tabs 12/11/21 mg-ethinyl estradiol 25 mcg tablet (Zvt-Lg-Lpvoetlgu) nitrofurantoin 100 mg PO Q12H 5 days #10 caps 01/10/22 monohydrate/macrocrystals 100 mg capsule Allergies Allergy/AdvReac Type Severity Reaction Status Date / Time Cephalosporins Allergy Hives Verified 01/17/23 05:38 clindamycin Allergy Skin Rash Verified 01/17/23 05:38 Penicillins Allergy Skin Rash Verified 01/17/23 05:38 General Stated Complaint: Abd Prob GANESH: 3 Review of Systems All systems reviewed & are unremarkable except as noted in HPI and below PFSH All Active Problems (Updated 01/17/23 @ 07:22 by Julito Olivas DO) Abdominal pain, RUQ (Acute) Vaginal candidiasis (Acute) Dysuria (Acute) Bicuspid aortic valve (Acute) Nipple discharge (Acute) Migraines (Chronic) Breast skin changes (Acute) Contraception (Acute) 01/08/21. Change from Norethindrone 0.35mg to OTC-Lo. History of delivery (Acute) 34w4d EGA. 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 Placental changes c/w vascular malperfusion. 10/2020. Neg w/u Antiphospholipid AB. [facility] recommends ASA with next . -17-OH-P beginning @16w. 16-20w cervical length. If< 2.5 then cerclage. Heart murmur (Acute) Bicuspid aortic valve, 10/2020. Aortic stenosis mod. Mean gradient 18mmHg. Migraine (Chronic) Takes NSAIDs prn Family history of thyroid disease in father (Acute) Surgical History H/O wisdom tooth extraction Family History Mother Thyroid disorder Maternal Aunt Thyroid disorder Maternal Aunt Thyroid disorder Paternal Aunt Thyroid disorder Social History Smoking/Tobacco Use Status: Never Smoking risk assessment performed?: Yes Alcohol Intake: current Alcohol Intake frequency: holidays/special occasions only Drug use: Never Household members: spouse and other Details: H-Raoul, S-Ephram Number of Children: 1 Education Level: college current occupation: pharmacist Sexually active: Yes Do you think of yourself as: straight/heterosexual Current gender identity: female What is your relationship status?: Panel score (0-1 are the most socially isolated patients): 1 What type of physical activity do you participate in: none Female Reproductive History Menstrual control method: none History History 1 Para 1 Hx # Term Pregnancies Multiple births Hx # Pregnancies 1 Ectopic pregnancies AB induced Hx Number of Living Children 1 AB spontaneous Past Pregnancies Del. Date GA/Weeks # Preg Succ Route Wgt Sex Labor Lgth Anesth esia Location [facility] 12/14/19 34 No vaginal 2466.409 g Male Ava Bass Delivery Date: 12/14/19 Last Updated by: Ava Bass M.D. 34(3)wks. VAVD. Girard. Exam Narrative Exam Narrative: 1.Const: Well-nourished, Well-developed, appearing stated age 2.Eyes: PERRL, no conjunctival injection, and symmetrical lids. 3.ENT: Atraumatic external nose and ears. Moist MM. Neck: Symmetric, trachea midline, No thyromegaly. 4.CVS: +S1/S2, No murmurs or gallops. Peripheral pulses 2+ and equal in all extremities. Brisk capillary refill in all extremities. 5.RESP: Unlabored respiratory effort. Clear to auscultation bilaterally. No wheezes rales or rhonchi 6.GI: Soft, Nontender/Nondistended, No hepatosplenomegaly. No guarding or rebound. No pain at McBurney's point, negative Pavon sign. Mild achiness in the right upper quadrant 7.MSK: Normocephalic/Atraumatic, Extremities w/o deformity or ttp No cyanosis or clubbing, Normal movement of all extremities 8.Skin: Warm, Dry. No rashes or lesions. 9.Neuro: edge glue machine tender II-XII grossly intact. Sensation grossly intact, no focal neurologic deficits. 10.Psych: (AAO) x3. Appropriate mood and affect Course Vital Signs Vital signs: Vital Signs Temperature 36.6 C 01/17/23 05:22 Pulse 77 01/17/23 05:22 Respiratory Rate 16 01/17/23 05:22 Blood Pressure 119/91 H 01/17/23 05:22 Pulse Oximetry 98 01/17/23 05:22 Temperature 36.6 C 01/17/23 05:22 Temperature Source Temporal Artery Scan 01/17/23 05:22 Pulse 77 01/17/23 05:22 Respiratory Rate 16 01/17/23 05:22 Respiratory Effort Normal 01/17/23 05:22 Blood Pressure 119/91 H 01/17/23 05:22 Blood Pressure Position Sitting 01/17/23 05:22 Pulse Oximetry 98 01/17/23 05:22 Oxygen Delivery Method Room Air 01/17/23 05:22 Oxygen Flow Rate 0 01/17/23 05:22 Pain Level 7 01/17/23 05:22
[2023-01-17] MEDS: Normal Saline 1,000 ML 1000 ML IV (05:45)
[2023-01-17] MEDS: Ketorolac 15 MG/ML VIAL IVP (05:50)
[2023-01-17 05:51] LABS: Bilirubin Negative (Negative); Blood Small (Negative); Clarity Clear (Clear); Glucose Negative (Negative); Ketones Negative (Negative); Leukocyte Esterase Small (Negative); Nitrite Negative (Negative); Specific Gravity >= 1.030 (1.005-1.025); Urobilinogen 0.2 mg/dL (Up to 0.2)
[2023-01-17 05:53] LABS: Abs Immature Grans 0.04 10^3/uL (0.0-0.06); Absolute Basophil Count 0.09 10^3/uL (0.0-0.2); Absolute Eosinophil Count 0.66 10^3/uL (0.0-0.7); Absolute Lymphocyte Count 1.86 10^3/uL (1.2-3.4); Absolute Monocyte Count 0.68 10^3/uL (0.1-0.8); Absolute Neutrophil Count 6.17 10^3/uL (1.2-6.7); Basophils % 0.9; Eosinophils % 6.9; HCT 40.1 % (36.0-46.0); HGB 13.2 g/dL (11.2-15.7); Immature Grans % 0.4; Lymphocytes % 19.6; MCH 29.6 pg (27.0-33.0); MCHC 32.9 % (32.0-36.0); MCV 90 fL (80-95); MPV 9.1 fL (8.0-11.0); Monocytes % 7.2; Platelet Count 303 10^3/uL (130-400); RBC 4.46 10^6/uL (3.93-5.22); RDW 12.4 % (11.7-14.6); RDW-SD 40.9 fL
[2023-01-17] MEDS: Dicyclomine 10 MG CAP PO (05:55)
[2023-01-17 05:58] LABS: Bacteria Few HPF (Negative); C & S Indicated? No/Sq. Contamination; Casts Negative LPF (Negative); Crystals Negative HPF (Negative); Epithelial Cells Many HPF (Negative); Mucus Negative (Negative)
[2023-01-17 06:13] LABS: ALT 18 U/L (14-59); AST 11 U/L (15-37); Albumin 3.6 g/dL (3.4-5.0); Alkaline Phosphatase 47 U/L (46-116); Anion Gap 8.8 mmol/L (3-11); BUN 16 mg/dL (7-18); Bilirubin, Direct 0.1 mg/dL (0.0-0.2); Bilirubin, Total 0.3 mg/dL (0.2-1.0); CO2 24.2 mmol/L (21.0-32.0); CREATININE 0.9 mg/dL (0.55-1.02); Calcium 8.4 mg/dL (8.5-10.1); Chloride 110 mmol/L (98-107); Estimated GFR 84.44 (mL/min/1.73m2); Glucose 103 mg/dL (74-106); Lipase 28 U/L (16-77); Sodium 143 mmol/L (136-145)
--- NOTE | 2023-01-17 06:42 | DI.US_ITS ---
Exam(s) US ABDOMEN LIMITED EXAM: US ABDOMEN LIMITED CLINICAL HISTORY: attn GB and RUQ TECHNIQUE: Ultrasound abdomen performed using standard protocol. COMPARISON: No exams were available for comparison FINDINGS: PANCREAS: Normal where visualized. LIVER: Normal. Hepatopedal flow in the Portal Vein. The liver measures in 14.5 cm length. GALLBLADDER: No evidence of cholelithiasis. No evidence of wall thickening. No pericholecystic fluid identified. BILIARY SYSTEM: Common bile duct measures < 7 mm. No intrahepatic biliary ductal dilation. RAMIREZ'S SIGN: Negative. RIGHT KIDNEY: Kidney is normal in size. No evidence of renal calculi. No evidence of hydronephrosis. No renal mass or cyst identified. ASCITES: None seen. IMPRESSION: 1. Normal sonographic appearance of the upper abdomen. 2. Findings were discussed with the emergency department at 8:55 a.m. on 01/17/2023. DATA REPOSITORY:
--- NOTE | 2023-01-17 09:25 | ED.PROG_ITS ---
Date of service: 01/17/23 Time of Service: 09:26 Medical Decision Making Care was signed out by Dr. Olivas, please see his documentation regarding initial ED presentation course. Plan at signout was to follow-up on right upper quadrant ultrasound. Right upper quadrant ultrasound was interpreted by radiology as negative. Patient reassessed and stable. Plan for discharge with outpatient follow-up with gastroenterology. Lab Data Lab results reviewed: Yes I reviewed the patient's lab results. Labs: Laboratory Tests Range/Units 01/17/23 01/17/23 01/17/23 05:30 05:30 05:45 WBC (4.4-10.8) 10^3/uL 9.50 RBC (3.93-5.22) 10^6/uL 4.46 Hgb (11.2-15.7) g/dL 13.2 Hct (36.0-46.0) % 40.1 MCV (80-95) fL 90 MCH (27.0-33.0) pg 29.6 MCHC (32.0-36.0) % 32.9 RDW (11.7-14.6) % 12.4 Plt Count (130-400) 10^3/uL 303 MPV (8.0-11.0) fL 9.1 Immature Gran % 0.4 Neutrophils % 65.0 Lymphocytes % 19.6 Monocytes % 7.2 Eosinophils % 6.9 Basophils % 0.9 Nucleated RBC % (0.0-0.3) % 0.0 Absolute Neutrophils (1.2-6.7) 10^3/uL 6.17 Absolute Lymphocytes (1.2-3.4) 10^3/uL 1.86 Absolute Monocytes (0.1-0.8) 10^3/uL 0.68 Absolute Eosinophils (0.0-0.7) 10^3/uL 0.66 Absolute Basophils (0.0-0.2) 10^3/uL 0.09 Sodium (136-145) mmol/L 143 Potassium (3.5-5.1) mmol/L 4.0 Chloride (98-107) mmol/L 110 H Carbon Dioxide (21.0-32.0) mmol/L 24.2 Anion Gap (3-11) mmol/L 8.8 BUN (7-18) mg/dL 16 Creatinine (0.55-1.02) mg/dL 0.9 Est GFR (CKD-EPI 2020) (mL/min/1.73m2) 84.44 Glucose (74-106) mg/dL 103 Calcium (8.5-10.1) mg/dL 8.4 L Total Bilirubin (0.2-1.0) mg/dL 0.3 Conjugated Bilirubin (0.0-0.2) mg/dL 0.1 AST (15-37) U/L 11 L ALT (14-59) U/L 18 Alkaline Phosphatase (46-116) U/L 47 Total Protein (6.4-8.2) g/dL 7.0 Albumin (3.4-5.0) g/dL 3.6 Lipase (16-77) U/L 28 Urine Color (Yellow) Yellow Urine Clarity (Clear) Clear Urine pH (5-8) 6.0 Ur Specific [place] (1.005-1.025) >= 1.030 H Urine Protein (Negative) mg/dL Negative Urine Ketones (Negative) mg/dL Negative Urine Blood (Negative) Small H Urine Nitrite (Negative) Negative Urine Bilirubin (Negative) Negative Urine Urobilinogen (Up to 0.2) mg/dL 0.2 Ur Leukocyte Esterase (Negative) Small H Urine RBC (0-2) HPF 3-5 H Urine WBC (0-5) HPF 5-10 Ur Epithelial Cells (Negative) HPF Many Urine Crystals (Negative) HPF Negative Urine Bacteria (Negative) HPF Few Urine Casts (Negative) LPF Negative Urine Mucus (Negative) Negative Ur Culture Indicated? No/Sq. Contamination Urine Glucose (Negative) mg/dL Negative Sign Out Sign Out Data: Sign Out Comment: Right upper quadrant pain, follow-up on ultrasound with expected discharge Last updated by Julito Olivas DO at 01/17/23 08:05 Discharge Plan Disposition Patient Disposition: Home Condition: Stable Discharge Details Clinical Impression: Abdominal pain, RUQ Primary Care Provider: Jaime Muñoz ED Provider: Paulie Nation Home Meds and New Rx's Prescriptions: New dicyclomine 10 mg capsule 10 mg PO TID Qty: 30 0RF Continued nitrofurantoin monohyd/m-cryst 100 mg capsule 100 mg PO Q12H 5 Days Qty: 10 5RF Rx Instructions: must administer with a meal/food clobetasol 0.05 % ointment 1 applic TP BID PRN nystatin-triamcinolone 100,000-0.1 unit/gram-% ointment 1 applic TP BID PRN prenat.vits,aj,vnx-vumj-bxacm Tablet 1 tab PO DAILY norgestimate-ethinyl estradiol [Cby-Tv-Vmytbkofn] 0.18/0.215/0.25 mg-25 mcg tablet 1 tab PO DAILY Qty: 84 4RF Discharge Instructions Instructions: Abdominal Pain (ED) Additional Instructions: Please follow-up with your nanny caregiver and brand marketing intern. Maintain a clear liquid diet today to allow for bowel rest. You may advance your diet tomorrow morning to bland foods like rice. Advance diet slowly thereafter as tolerated. Return to the emergency department immediately for any worsening or new concerning symptoms. Referrals: Jaime Muñoz NP [Primary Care Provider] - Discharge Data Discharge Date/Time-TO BE ENTERED AT DEPARTURE: 01/17/23 09:37
[2023-01-17 09:35] VITALS: BP 127/76; PULSE 75; RESP 18; O2SAT 98
[2023-01-20 17:23] LABS: Coproporphyrin, Tetra 21 nmol/L (<=110); Uroporphyrin, Octa 4 nmol/L (<=30)
== END 2023-01-17 09:37 | disposition home or self-care (01) ==
PROVIDERS: Student in an Organized Health Care Education/Training Program; Emergency Provider Student in an Organized Health Care Education/Training Program; PCP Nurse Practitioner Family
DX: R10.11 Right upper quadrant pain (principal)
CPT/HCPCS: 36415; 80053; 81025; 83690; 96361; 96374; 99284; 76705; 81003; 81015; 82248; 84110; 84120; 85025; J1885

== ENCOUNTER 2023-10-16 04:20 | Outpatient (CLI) | payer BC, SELFPAY ==
[2023-10-16 10:38] LABS: Panorama Kit Sent via Fed Ex
[2023-10-16 10:51] LABS: Abs Immature Grans 0.06 10^3/uL (0.0-0.06); Absolute Basophil Count 0.07 10^3/uL (0.0-0.2); Absolute Eosinophil Count 0.24 10^3/uL (0.0-0.7); Absolute Monocyte Count 0.53 10^3/uL (0.1-0.8); Absolute Neutrophil Count 7.06 10^3/uL (1.2-6.7); Basophils % 0.8; Eosinophils % 2.6; HCT 39.6 % (36.0-46.0); HGB 13.7 g/dL (11.2-15.7); Immature Grans % 0.6; MCH 30.4 pg (27.0-33.0); MCHC 34.6 % (32.0-36.0); MCV 88 fL (80-95); MPV 9.2 fL (8.0-11.0); Monocytes % 5.7; Neutrophils % 76.3; Platelet Count 309 10^3/uL (130-400); RBC 4.51 10^6/uL (3.93-5.22); RDW-SD 41.9 fL; WBC 9.26 10^3/uL (4.4-10.8)
[2023-10-16 20:24] LABS: Hepatitis B Surface Ag Negative (Negative)
[2023-10-16 20:53] LABS: Hepatitis C Ab w Rflx HCV PCR Negative (Negative)
[2023-10-16 20:54] LABS: HIV-1/2 Ag & Ab Screen Negative (Negative)
[2023-10-17 21:01] LABS: Syphilis IgG w/Reflex Nonreactive (Nonreactive)
== END 2023-10-16 04:21 | disposition home or self-care (01) ==
LOC: LBO 04:24
PROVIDERS: Advanced Practice Midwife; Visit Provider Advanced Practice Midwife
DX: Z34.91 Encounter for supervision of normal pregnancy, unspecified, first trimester
CPT/HCPCS: 36415; 86803; 86850; 86900; 86901; 87340; 87389; 85025; 86780

== ENCOUNTER 2023-10-16 10:12 | Outpatient (REF) | payer BC, SELFPAY | END 2023-10-16 10:13 | disposition home or self-care (01) | LOC: LBN 10:12 | PROVIDERS: Visit Provider Advanced Practice Midwife | DX: Z34.91 Encounter for supervision of normal pregnancy, unspecified, first trimester (principal); Z3A.11 11 weeks gestation of pregnancy | CPT/HCPCS: 87086 ==

== ENCOUNTER 2024-01-05 11:19 | Outpatient (REF) | payer BC, SELFPAY | END 2024-01-05 11:20 | disposition home or self-care (01) | LOC: LBN 11:19 | PROVIDERS: Visit Provider Obstetrics & Gynecology | DX: N89.8 Other specified noninflammatory disorders of vagina (principal) | CPT/HCPCS: 87480; 87510; 87660 ==

== ENCOUNTER 2024-02-13 01:45 | Outpatient (CLI) | payer BC, SELFPAY ==
[2024-02-13 10:29] LABS: HCT 35.1 % (36.0-46.0); HGB 11.8 g/dL (11.2-15.7); MCH 30.9 pg (27.0-33.0); MCHC 33.6 % (32.0-36.0); MCV 92 fL (80-95); MPV 9.2 fL (8.0-11.0); Platelet Count 223 10^3/uL (130-400); RBC 3.82 10^6/uL (3.93-5.22); RDW 13.7 % (11.7-14.6); RDW-SD 46.1 fL; WBC 10.28 10^3/uL (4.4-10.8)
[2024-02-13 10:40] LABS: Glucose,1 Hr (Glucola) 164 mg/dL (80-140)
== END 2024-02-13 01:46 | disposition home or self-care (01) ==
LOC: LBO 01:45
PROVIDERS: Visit Provider Obstetrics & Gynecology Gynecology
DX: Z3A.01 Less than 8 weeks gestation of pregnancy (principal); Z34.01 Encounter for supervision of normal first pregnancy, first trimester
CPT/HCPCS: 36415; 82950; 85027

== ENCOUNTER 2024-04-15 13:00 | Outpatient (REF) | payer BC, SELFPAY | END 2024-04-15 13:01 | disposition home or self-care (01) | LOC: LBN 13:00 | PROVIDERS: PCP Nurse Practitioner Family; Visit Provider Obstetrics & Gynecology Gynecology | DX: Z34.93 Encounter for supervision of normal pregnancy, unspecified, third trimester (principal); Z3A.37 37 weeks gestation of pregnancy | CPT/HCPCS: 87081 ==

== ENCOUNTER 2024-05-05 21:22 | Inpatient (IN) | payer BC, SELFPAY ==
--- NOTE | 2024-05-05 21:55 | W.PM.OBHPL1 ---
Date of service: 05/05/24 Time of Service: 21:55 Assessment and Plan Assessment and plan (1) Elderly multigravida: Status: Acute Assessment and plan: 2 para 1 at 39 weeks and 6 days in active labor. Group B strep is negative. She did have an elevated glucose tolerance test and reports normal glycemic control. She is present with her and her youngest son for delivery. She declines need for pain control at this point. Expect vaginal delivery. Prepare for shoulder dystocia in light of larger than previous, and long second stage with first delivery, and uncertain glycemic control. (2) History of delivery: Status: Acute (3) Elevated glucose tolerance test: Status: Acute (4) Normal labor: Status: Acute OB-HPI Labor/Delivery History of Present Illness Reason for Visit: LABOR Chief Complaint: Uterine Contractions. KATHY Calculator Estimated Delivery Date Method Current WG Current Estimate 05/06/24 Ultrasound #1 39w 6d Other Estimates 04/30/24 LMP (Uncertain) 40w 5d Comments: Patient is a 39-year-old 2 para 1 at 39-6/7 weeks gestation. She was seen in the office today for routine visit. She reports that her glycemic control has been appropriate. She was checked in the office today and noted to be 4 cm, 100% effaced, -2 station. She called this evening with increasing contractions from 12 minutes now down to 3 minutes and presented to the hospital in spontaneous labor. She was noted to be 7 cm, 100% effaced with a large bulging bag of fluid and -1 station, suture lines easily appreciated. She was admitted to the center for labor I would anticipate vaginal delivery. As of note, she did present with her and her young child as she has no current daycare options for him. We have found nursing staff to act as a sitter and all options for child to be in the room at delivery versus out with the preference to be determined by the family. All of her questions were answered. At this point, she declines need for pain control. History of Present Expected Delivery Route/Plan CINTHYA - care FOB/ - Peewee Benavidez (2nd child together) Specific Issues/Plan 1. AMA : will recommend low dose ASA @ 12 wks, 1a. offer level 2 scan and MFM consult @ [facility] - [facility] 1b. offer cfDNA screen - desires panorama 2. at 34 weeks - 20w cervical length 4 cm. 2019. APA w/u NEG. 3. CF/SMA carrier screen known negative, Panorama extended panel normal: boy. unsure about msafp 4. High deductible insurance: Must review all recommended labs w/pt, she needs to verify cost 3a. Declines early 1-hr GTT, Varicella, UDS, Rubella, Chlamydia and gonorrhea. 5. BMI 31, early glucola, declined 6. Heart Murmur, Bicuspid aortic valve- Cardiology visit and echocardiogram 04/[address] Sow-Echocardiogram WNL. - plan for echo, referral placed 12/15/2023 7. Migraine - history 8. Elevated 1hr GTT - declines 3hr and would like to do testing with a CGM for 2wks - fastings all wnl but some 2hrs elevated. - Will continue to monitor with CGM. Recognizes dietary triggers. 9.Hx of PCN allergy. Sensitivities requested with RV GBS Cx results. Assessment: History Reviewed & Current Narrative: Active labor at 39 weeks and 6 days Review of Systems All systems reviewed & are unremarkable except as noted in HPI and below Eyes Eyes: Reports system reviewed and no additional complaints, except as documented Cardiovascular Cardiovascular: Reports system reviewed and no additional complaints, except as documented Respiratory Respiratory: Reports system reviewed and no additional complaints, except as documented Genitourinary Genitourinary: Reports system reviewed and no additional complaints, except as documented Psychiatric Psychiatric: Reports system reviewed and no additional complaints, except as documented Hematologic/Lymphatic Hematologic/Lymphatic: Reports system reviewed and no additional complaints, except as documented PFSH All Active Problems (Updated 05/05/24 @ 22:03 by Tamia Jose DO) Normal labor (Acute) Elevated glucose tolerance test (Acute) Anxiety (Chronic) Family history of thyroid disease (Acute) (Acute) Body mass index [BMI] 31.0-31.9, adult (Acute) Elderly multigravida (Acute) Pruritus of in first trimester (Acute) History of delivery (Acute) 34w4d EGA. 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 Placental changes c/w vascular malperfusion. 10/2020. Neg w/u Antiphospholipid AB. [facility] recommends ASA with next . -17-OH-P beginning @16w. 16-20w cervical length. If< 2.5 then cerclage. Medical History (Updated 05/05/24 @ 22:03 by Tamia Jose DO) Bicuspid aortic valve Migraines Migraine Takes NSAIDs prn Heart murmur Bicuspid aortic valve, 10/2020. Aortic stenosis mod. Mean gradient 18mmHg. Surgical History H/O wisdom tooth extraction Family History (Updated 04/22/24 @ 11:49 by Beba Larose) Mother Thyroid disorder Anxiety Depression Maternal Aunt Thyroid disorder Maternal Aunt Thyroid disorder Paternal Aunt Thyroid disorder Sister Alcohol use disorder Substance use disorder Brother Alcohol use disorder Substance use disorder Maternal Grandmother Diabetes Type 2 diabetes mellitus Lung cancer Maternal Grandfather Lung cancer Diabetes Brother Diabetes Social History (Updated 04/22/24 @ 11:45 by Beba Larose) Smoking/Tobacco Use Status: Never Smoking risk assessment performed?: Yes Alcohol Intake: current Alcohol Intake frequency: holidays/special occasions only Drug use: Never Adopted: No Caregiver/Support person: No Foster care: No Household members: spouse and other Details: H-Raoul, S-Kendellhellen Housing: house Number of Children: 2 number of grandchildren: 0 Communication Needs: None Education Level: master's degree Do you need help understanding health information?: Rarely current occupation: pharmacist Pets and animals: Yes (2 Cats, 1 Dog, 10 Chickens and 6 Guineas) Pets and animals: cat(s), dog(s) and farm animals Sexually active: Yes Do you think of yourself as: straight/heterosexual Current gender identity: female What is your relationship status?: How often do you talk on the phone with friends or family?: decline to answer How often do you get together with friends or relatives?: decline to answer Do you belong to any clubs or organized social groups?: no Panel score (0-1 are the most socially isolated patients): 1 What type of physical activity do you participate in: none Linda/Restorationist: None Special linda needs: No Seatbelt use: always Helmet use: Yes Drive intox or ride w/intox recycler forklift driver truck driver: No Female Reproductive History Menstrual control method: none History History 2 Para 1 Hx # Term Pregnancies 0 Multiple births 0 Hx # Pregnancies 1 Ectopic pregnancies 0 AB induced 0 Hx Number of Living Children 1 AB spontaneous 0 Past Pregnancies Del. Date GA/Weeks # Preg Succ Route Wgt Sex Labor Lgth Anesthesia Location Prov Complic 12/14/19 34 No Yes vaginal 5 lb [address] Bass Delivery Date: 12/14/19 Last Updated by: Noelle Deleon PPROM @ 34+3 wks, spont labor. VAVD. Jatin Meds Allergies and Home Medications Allergies Allergy/AdvReac Type Severity Reaction Status Date / Time Cephalosporins Allergy Hives Verified 05/05/24 14:18 clindamycin Allergy Skin Rash Verified 05/05/24 14:18 Penicillins Allergy Skin Rash Verified 05/05/24 14:18 Home Medications Medication Instructions Recorded Confirmed Type prenat.vits,aj,qkq-pjef-gfyvv 1 tab PO DAILY 02/05/21 05/04/24 History clobetasol 0.05 % topical cream 1 applic topical BID 2 weeks #45 09/04/23 05/04/24 Rx grams aspirin 81 mg tablet,delayed 81 mg PO DAILY 11/13/23 05/04/24 History release blood-glucose sensor (FreeStyle #1 ea 03/01/24 05/04/24 Rx Nehal 3 Sensor device) Exam Constitutional Constitutional: mild distress, average body habitus and cooperative Detailed Labor and Delivery Exam Dilation: 7 Effacement (%): 100 station: -1 Position: OA Cervix position: anterior Consistency: soft Callaway Score: Cervical Points Exam 0 1 2 3 Dilation Closed 1-2cm 3-4 cm 5-6cm Effacement 0-30% 40-50% 60-70% 80% Consistency Firm Medium Soft Station -3 -2 -1,0 +1,+2 Position Posterior Mid Anterior CALLAWAY Score(Cervical Ripeness Score): 10 Amniotic Membrane Status: Intact (Bulging bag of water) Contraction Frequency(min): 3 Contraction Duration(sec): 90 Contraction Intensity: Strong Fetus A Heart Rate Baseline: 13 Monitor Accelerations: 15 X 15 Monitor Decelerations: None Variability: Moderate (6-25 BPM) Presentation: Vertex Categories: Category I HEENT Exam HEENT Exam: Normal Respiratory Exam Respiratory Exam: Normal Cardiovascular Exam Cardiovascular Exam: Normal Detailed Abdominal Exam Comments: Gravid, regular strong contractions every 3 minutes Exam Exam: Normal Extremities Exam Extremities Exam: Normal Neurological Exam Neurological Exam: Normal Risk Assessment Risk for Shoulder Dystocia Historical/Initial OB: NEGATIVE FOR: Pelvic Abnormality, Pre- BMI>30, Previous Shoulder Dystocia or Previous Macrosomia Increased Risk?: Yes Counseling: Discussed shoulder dystocia, positioning, potential need for interventions Risk for Pre-Eclampsia Date Initiated/Initials: to start @ 12 wks. JK Yes, if one or more: NEGATIVE FOR: Hx Pre-E/Gest HTN, Chronic HTN, Multiple Gestation, Pre-gestational DM, Renal Disease, Systemic Lupus or APA Syndrome Yes, if 2 or more: POSITIVE FOR: Age>= 35 yrs and BMI>30; NEGATIVE FOR: Nulliparity, >10yr btwn pregnancies, ethinicty, Mother/Sister w/ Pre-E or Previous IUGR Risk for Post- Hemorrhage Initial: NEGATIVE FOR: Multiple Gestation, Previous PPH, Known Clotting Deficiency, Grand Multiparity or Anticoagulation At Risk?: No Counseled re: Active Management: Yes Date/Initials: FRANKY 05/06/2024 Risks Reviewed Risks Reviewed Upon Admission: Yes
[2024-05-05 22:07] LABS: HCT 40.8 % (36.0-46.0); MCH 30.9 pg (27.0-33.0); MCHC 34.3 % (32.0-36.0); MCV 90 fL (80-95); MPV 9.6 fL (8.0-11.0); Platelet Count 213 10^3/uL (130-400); RBC 4.53 10^6/uL (3.93-5.22); RDW 13.6 % (11.7-14.6); RDW-SD 45.2 fL; WBC 10.16 10^3/uL (4.4-10.8)
[2024-05-05 22:09] VITALS: RESP 20; TEMP 36.4
[2024-05-05 22:13] VITALS: BP 114/69; PULSE 76
--- NOTE | 2024-05-05 22:14 | W.PM.OBNL1 ---
Date of service: 05/05/24 Time of Service: 22:14 Objective Pulse BP 76 114/69 05/05/24 22:13 05/05/24 22:13 Laboratory Results WBC 10.16 10^3/uL (4.4-10.8) 05/05/24 21:55 RBC 4.53 10^6/uL (3.93-5.22) 05/05/24 21: Hgb 14.0 g/dL (11.2-15.7) 05/05/24 21: Hct 40.8 % (36.0-46.0) 05/05/24 21: MCV 90 fL (80-95) 05/05/24 21: MCH 30.9 pg (27.0-33.0) 05/05/24: MCHC 34.3 % (32.0-36.0) 05/05/24: RDW 13.6 % (11.7-14.6) 05/05/24: Plt Count 213 10^3/uL (130-400) 05/05/24 21: MPV 9.6 fL (8.0-11.0) 05/05/24 21:55 Subjective Interval history since last seen: Increased pressure, some involuntary pushing. On examination. Appropriate heart rate tracing. Contractions every 2 to 3 minutes. Cervix is completely dilated with a large bulging bag of water. vertex is no longer well engaged upon the cervix. No pulsatile cord noted, however taut, bulging bag of water. In light of this fact, or crew notified for opening in OR in case of a cord prolapse or malposition. Change in exam discussed with the patient and her . Will continue to monitor. No artificial rupture of membranes at this point. Patient transition to an upright position. Results Hemoglobin/Hematocrit: Hgb 14.0 g/dL (11.2-15.7) 05/05/24 21: Hct 40.8 % (36.0-46.0) 05/05/24 21:55
[2024-05-05 22:22] VITALS: TEMP 36.4
[2024-05-05 22:32] VITALS: PULSE 76
--- NOTE | 2024-05-05 22:43 | ANES.PREOP_ITS ---
General Info Date of Service Date Performed: 05/05/24 Height: 5 ft Weight: 78.018 kg Body Mass Index (BMI): 33.5 Meds Allergies and Home Medications Allergies Allergy/AdvReac Type Severity Reaction Status Date / Time Cephalosporins Allergy Hives Verified 05/05/24 14:18 clindamycin Allergy Skin Rash Verified 05/05/24 14:18 Penicillins Allergy Skin Rash Verified 05/05/24 14:18 Home Medication Medication Instructions Recorded prenat.vits,aj,imw-qkug-lkfuk 1 tab PO DAILY 02/05/21 clobetasol 0.05 % topical cream 1 applic topical BID 2 weeks #45 09/04/23 grams aspirin 81 mg tablet,delayed 81 mg PO DAILY 11/13/23 release blood-glucose sensor (FreeStyle #1 ea 03/01/24 Nehal 3 Sensor device) Current Visit Medications: Current Medications Generic Name Dose Route Start Last Admin Trade Name Freq PRN Reason Stop Dose Admin IV Miscellaneous Supplies 1 each 05/05/24 21:30 Iv Access IV DIRECTED STEFFEN Sodium Chloride 0 ml 05/05/24 21:22 Normal Saline Flush 10 Ml Syr IVP PRN PRN Sodium Chloride 0 ml 05/06/24 08:30 Normal Saline Flush 10 Ml Syr IVP BID STEFFEN Sodium Chloride 0 ml 05/05/24 21:22 Normal Saline 10 Ml Vial IJ DIRECTED PRN PFSH Active Problems Active Problems: Problem Status Onset Code Normal labor O80, Z37.9 Elevated glucose tolerance test R73.09 Anxiety F41.9 Family history of thyroid disease Z83.49 Z34.90 Body mass index [BMI] 31.0-31.9, adult Z68.31 Elderly multigravida O09.529 Pruritus of in first trimester O99.711, L29.9 History of delivery Z87.51 Medical History Medical History (Updated 05/05/24 @ 22:03 by Tamia Jose DO) Bicuspid aortic valve Migraines Migraine Takes NSAIDs prn Heart murmur Bicuspid aortic valve, 10/2020. Aortic stenosis mod. Mean gradient 18mmHg. Surgical History Surgical History H/O wisdom tooth extraction Tobacco Smoking/Tobacco Use Status: Never Alcohol Alcohol Intake: current Alcohol intake frequency: holidays/special occasions only Substance Use Substance use: Never Prental History History 2 2 Para 1 Hx # Term Pregnancies 0 Multiple births 0 Hx # Pregnancies 1 Ectopic pregnancies 0 AB induced 0 Hx Number of Living Children 1 AB spontaneous 0 Past Pregnancies Del. Date GA/Weeks # Preg Succ Route Wgt Sex Labor Lgth Anesth esia Location [facility] 12/14/19 34 No Yes vaginal 2466.[address] Bass Delivery Date: 12/14/19 Last Updated by: Noelle Deleon PPROM @ 34+3 wks, spont labor. VAVD. [place] Vital Signs and Lab Results Vital Signs Most Recent Vital Signs in EMR: Most Recent Vital Signs Temp Pulse Resp BP 36.4 C L 76 20 114/69 05/05/24 22:22 05/05/24 22:13 05/05/24 22:09 05/05/24 22:13 Point of Care Results Point of Care Results: Finger Stick Blood Glucose 113 05/05/24 22:01 Lab Results 05/05/24 21:55 Blood Type / Crossmatch: 2 Antibody Screen NEGATIVE 05/05/24 Complete Blood Count: 2 White Blood Count 10.16 10^3/uL (4.4-10.8) 05/05/24 21:55 Red Blood Count 4.53 10^6/uL (3.93-5.22) 05/05/24 21:55 Hemoglobin 14.0 g/dL (11.2-15.7) 05/05/24 21:55 Hematocrit 40.8 % (36.0-46.0) 05/05/24 21:55 Platelet Count 213 10^3/uL (130-400) 05/05/24 21:55 Complete Metabolic Panel: 2 No Data to Display Liver Function Panel: 2 No Data to Display Coagulation Panel: 2 No Data to Display Cardiac Panel: 2 No Data to Display Arterial Blood Gas: 2 No Data to Display Venous Blood Gas: 2 No Data to Display Pancreas Panel: 2 No Data to Display Thyroid Panel: 2 No Data to Display Infectious Disease: 2 No Data to Display Blood Cultures: 2 No Data to Display Toxicology Panel: 2 No Data to Display Panel: 2 No Data to Display Anesthesia Assessment and Plan Anesthesia History Personal History: No History of Anesthesia Complications Family History: No Family History of Anesthesia Complications Exercise Tolerance Exercise Tolerance: Metabolic Equivalents>4 Pertinent Negatives Pertinent Negatives: No Major Cardiovascular Symptoms or Complaints and No Major Pulmonary Symptoms or Complaints Cardiac & Pulmonary Exam Cardiac Exam: Normal S1/S2 Heart Sounds Pulmonary Exam: Clear Bilateral Breath Sounds Implantable Cardiac Device Does patient have a Pacemaker or an ICD?: No Airway Exam Known Difficult Airway: No Mallampati Class: 2 Mouth Opening: Normal (> 3cm) Thyromental Distance: Greater than 3 cm Neck Range of Motion: Full ROM Neck Circumference: Normal Teeth Condition: Normal Dentition ASA Classification ASA Score: ASA 2 Emergency Case?: Yes NPO Status NPO Status: Full Stomach () Status Status: Confirmed Anesthesia Plan Resuscitation Status: Full Code Anesthesia Technique: General Anesthesia Airway Planned: Endotracheal Tube Monitors Used: Standard Monitors Preoperative Comments:: Decreased heart tones, stat c section
[2024-05-05 22:46] VITALS: BMI 33.5
[2024-05-05] MEDS: Terbutaline 1 MG/ML VIAL (23:00)
[2024-05-05] MEDS: Lactated Ringers 1,000 ML 120 ML IV (23:07)
--- NOTE | 2024-05-05 23:48 | PLAC_PTH ---
PATIENT: Anya Mustafa LOC: OBS U#:[id number] AGE/SX: 39/F ROOM: OBS.300 RE05/05/[address]: Tamia Jose DO : 1985 BED: A DIS: 05/07/2024 SPEC #: [id number] RECD: 05/06/24 13:06 STATUS: ANALISA REQ #: [id number] BIANCA: 05/05/24 23:[address]: Tamia Jose DEPT: Surgical Specimen RECD BY: Jennifer Belcher ENTERED: 05/06/24 13:07 SP TYPE: PLAC OTHR DR: Rylee Matos APRN Tissues: 1 - PLACENTA (3RD TRIMESTER) Procedures: GROSS AND MICRO LEVEL 5 Comments: [id number]
[2024-05-05] MEDS: Bupivacaine 0.25% Pres-Free 30 ML VIAL (23:50)
[2024-05-06] VITALS (19 sets, daily range): BP systolic 79–111; BP diastolic 41–69; PULSE 72–106; RESP 11–18; TEMP 36.3–36.7; O2SAT 96–100
--- NOTE | 2024-05-06 00:09 | W.PM.OBCSECT ---
Date of service: 05/06/24 Time of Service: 00:09 Operative Note Operative Note Delivery Method: Unscheduled STAT: Yes and Primary NTSV>37 Weeks: No DATE OF PROCEDURE: 05/06/24 PRE-OP DIAGNOSES: Active labor, intolerance POST-OP DIAGNOSES: same PROCEDURE: Primary low-transverse section, emergent SURGEON: Tamia Jose Supervisor Product Inspection: Nathan Hsieh Anesthesia: GETA and local Estimated blood loss (mL): 600 Pathology: other (Placenta for exam) Complications: None Patient was transported to: PACU Patient's condition: stable Indications: at 39 weeks 6 days. Active labor. distress. Findings: Delivery of a viable male infant with Apgars of 9 and 9 Procedure Description: Patient presented initially in active labor 7 cm dilated with reassuring status. She had a significantly large bulging bag of water and the vertex that was not engaged in the pelvis at this point. For this reason the OR crew was called to be present for the possibility of cord prolapse, or compound presentation. Patient had spontaneous rupture of membranes for copious clear fluid. She had bradycardia into the 90s which would not respond to IV fluids, position change, elevation of the vertex off of the cervix. On examination, no cord was noted. She received supplemental oxygen and heart tones remained in the 90s. For this reason, and significant maternal pain, requesting section, the risk, benefits, and alternatives of delivery were explained and verbal consent only was obtained. Anesthesia was present and the patient was taken emergently to the operating suite for a section. She was placed on the OR table had pneumatic compression stockings placed vaginal preparation done, Joseph catheter inserted, abdomen prepped and draped. She had the administration of rapid sequence general anesthesia and at this point, Pfannenstiel skin incision was made. It was carried down to the underlying fascia and incised in the midline. Rectus muscles were split in the midline and the peritoneum identified. The incision was stretched and bladder blade inserted. The scalpel was again used to make a low transverse uterine incision and the vertex was delivered through the uterine incision. There was no evidence of nuchal cord and the shoulders followed with ease. Three-vessel cord was noted clamped x 2 and cut and the was handed off to the waiting nursery staff. At this point cord blood gases and cord blood sample were both obtained and the placenta was manually expressed from the uterus. The uterus was exteriorized and cleared of all clot and debris. The uterine incision was closed using 0 Monocryl suture in a 2 layer fashion with the first layer being running locked, second being imbricating. There was 1 area that was not hemostatic which was oversewn with a single stitch. At this point the uterus was returned to the abdomen. Ovaries and tubes have been previously inspected and noted to be normal without pathology. The abdomen was irrigated with copious amounts of normal saline and the uterine incision reinspected and noted to be hemostatic. At this point the fascial incision was closed using 0 Vicryl suture in a running fashion. The subcutaneous tissue was infiltrated with quarter percent Marcaine and then reapproximated with 3-0 Vicryl in a simple interrupted fashion. The skin edge was reapproximated with 4-0 undyed Monocryl. Steri-Strips and sterile dressing were placed. The patient awoke from anesthesia without difficulty and was taken to the recovery room in stable condition. Delivery of a viable male with Apgars 9 and 9. Pathology: Placenta for examination. Findings: Normal tubes, ovaries, uterus. Male . Short umbilical cord. Placenta intact. EBL: 600 mL Fluids: Crystalloid per anesthesia Complications: None apparent
[2024-05-06] MEDS: HYDROmorphone 2 MG/ML SYR ×3 (00:22→00:41)
[2024-05-06] MEDS: Lactated Ringers 1,000 ML 120 ML IV (00:55)
[2024-05-06] MEDS: ePHEDrine 50 MG/ML VIAL 10 MG IVP (01:45)
[2024-05-06] MEDS: Normal Saline Flush 10 ML SYR (05:22)
[2024-05-06] MEDS: Ketorolac 30 MG/ML VIAL IVP ×3 (06:42→18:43)
[2024-05-06] MEDS: Normal Saline Flush 10 ML SYR IVP ×2 (06:43→15:43)
--- NOTE | 2024-05-06 07:22 | W.PM.OBPNV1 ---
Date of service: 05/06/24 Time of Service: 07:22 Assessment and Plan Assessment and plan (1) Status post primary low transverse section: Status: Acute Assessment and plan: Postoperative day #1 status post primary low-transverse section, emergent. Doing well. Await CBC. Routine postoperative care. Subjective Subjective Interval history: Patient seen and examined this morning. Overall doing well. Some discomfort and some low back spasm. Vital signs are stable. Blood pressures slightly soft. Pulses appropriate. Urine output is good. We discussed her surgery, and her postoperative course. CBC will be drawn this morning. All questions answered. Exam Physical Exam Vital signs: Temp Pulse Resp BP Pulse Ox 97.3 F L 92 H 16 103/61 97 05/06/24 04:15 05/06/24 05:15 05/06/24 05:15 05/06/24 05:15 05/06/24 05:15 Vital Signs Reviewed: Yes Constitutional Constitutional: no acute distress and obese HEENT Exam HEENT Exam: Normal Respiratory Exam Respiratory Exam: Normal Cardiovascular Exam Cardiovascular Exam: Normal Abdominal Exam Abdomen: Tender Comments: Incision is dressed Fundal Exam Fundus: Below Umbilicus and Firm Extremities Exam Extremity Exam: Normal; negative Calf Tenderness Skin Exam Skin Exam: Normal Neurological Exam Neurological Exam: Normal Results Hemoglobin/Hematocrit: Hgb 14.0 g/dL (11.2-15.7) 05/05/24 21:55 Hct 40.8 % (36.0-46.0) 05/05/24 21:55
[2024-05-06 08:24] LABS: Abs Immature Grans 0.12 10^3/uL (0.0-0.06); Absolute Basophil Count 0.05 10^3/uL (0.0-0.2); Absolute Eosinophil Count 0.02 10^3/uL (0.0-0.7); Absolute Lymphocyte Count 0.78 10^3/uL (1.2-3.4); Absolute Monocyte Count 0.85 10^3/uL (0.1-0.8); Absolute Neutrophil Count 15.18 10^3/uL (1.2-6.7); Basophils % 0.3 %; Eosinophils % 0.1 %; HCT 30.3 % (36.0-46.0); HGB 10.2 g/dL (11.2-15.7); Immature Grans % 0.7 %; Lymphocytes % 4.6 %; MCH 30.8 pg (27.0-33.0); MCHC 33.7 % (32.0-36.0); MCV 92 fL (80-95); MPV 9.4 fL (8.0-11.0); Neutrophils % 89.3 %; Platelet Count 181 10^3/uL (130-400); RBC 3.31 10^6/uL (3.93-5.22); RDW 13.8 % (11.7-14.6); RDW-SD 46.2 fL
--- NOTE | 2024-05-06 09:16 | ANES.POST_ITS ---
Postoperative Evaluation Date, Time and Location Date Performed: 05/06/24 Time Performed: 09:05 Patient Location: Obstetrics Vital Signs Most Recent Imported Vital Signs: Most Recent Vital Signs Temp Pulse Resp BP Pulse Ox 36.7 C 78 16 88/56 L 98 05/06/24 07:45 05/06/24 09:04 05/06/24 07:45 05/06/24 09:04 05/06/24 07:45 Pain Score Most Recent Pain Score: Most Recent Pain Score Pain Level 3 05/06/24 00:52 Assessment Mental Status: Awake (Alert & Oriented to Patient Baseline) Airway and Respiratory Function: Patent airway with normal (patient baseline) respiratory exam Cardiovascular Function: Hemodynamically Stable Hydration Status: Adequately Hydrated Nausea & Vomiting: No Nausea or Vomiting Pain: Pt. Denies Any Pain Peripheral Nerve Block: Patient did not receive a nerve block Postoperative Comments:: Patient doing well this morning. Pleased with her experience. Blood pressure no leann, patient asymptomatic.
[2024-05-06] MEDS: Docusate Sodium 100 MG CAP PO (13:27)
[2024-05-06] MEDS: Acetaminophen 325 MG TAB 650 MG PO (15:25)
[2024-05-06] MEDS: oxyCODONE 5 mg/Acetaminophen 325 mg TAB PO (22:23)
[2024-05-07 04:00] VITALS: BP 92/64; PULSE 81; RESP 18; TEMP 36.6
[2024-05-07] MEDS: oxyCODONE 5 mg/Acetaminophen 325 mg TAB PO ×2 (04:50→10:40)
[2024-05-07 08:15] VITALS: BP 95/57; PULSE 69; RESP 18; TEMP 36.8; O2SAT 98
--- NOTE | 2024-05-07 09:49 | W.PM.OBDISCH ---
Date of service: 05/07/24 Time of Service: 09:50 DS: Diagnosis Discharge Diagnosis (1) Status post primary low transverse section: Status: Acute (2) Elevated glucose tolerance test: Status: Acute Discharge Plan Disposition Patient Disposition: Home Condition: Improving Discharge Details Reason For Visit: Labor Admit Date/Time: 05/05/24 21:22 Admit Provider: Tamia Jose Attending Provider: Tamia Jose Primary Care Provider: Rylee Matos Hospital Course Hospital Course: Patient is a 39yo female presented initially in active labor 7 cm dilated with reassuring status. She had a significantly large bulging bag of water and the vertex that was not engaged in the pelvis at this point. For this reason the OR crew was called to be present for the possibility of cord prolapse, or compound presentation. Patient had spontaneous rupture of membranes for copious clear fluid. She had bradycardia into the 90s which would not respond to IV fluids, position change, elevation of the vertex off of the cervix. On examination, no cord was noted. She received supplemental oxygen and heart tones remained in the 90s. For this reason, and significant maternal pain, requesting section a Primary Low Transverse delivery was performed without complications. She was discharged home on postop day #2 successfully breast-feeding. Pain was controlled with ibuprofen and Percocet. She was passing flatus tolerating a regular diet. Home Meds and New Rx's Prescriptions: New oxycodone-acetaminophen 5-325 mg Tablet 1 tab PO Q6H MDD 4 PRNQty: 10 0RF Discontinued prenat.vits,aj,bcn-qvtm-cwffe Tablet 1 tab PO DAILY aspirin 81 mg tablet,delayed release (DR/EC) 81 mg PO DAILY No Action (DME) FreeStyle Nehal 3 Sensor Device See Rx Instructions .Route Qty: 1 4RF Rx Instructions: As directed clobetasol 0.05 % cream 1 applic topical BID 14 Days Qty: 45 1RF Discharge Instructions Additional Instructions: Keep your postop appointment for next week to have your dressing removed. A prescription for Percocet has been called into your pharmacy take 1 tablet every 4-6 hours as needed for pain. You may shower with the dressing on. Do not worry if it gets wet Stand Alone Forms: BC Instructions, BC Discharge Instruc Activity:: Activity as Tolerated Equipment/Supplies:: No Equipment Needed Diet:: As Tolerated Discharge Orders Discharge Orders: Discharge Order (Routine); Ordered 05/07/24 Ordered By: Ava Bass OB:DS Summary Summary Delivery Method: Primary Episiotomy Description: None complications OB DS: none Contraception Discussed Contraception Discussed: No (Previously discussed that recent visit.: Progestin only OCPs), Infant Gender-Baby A: Male weight: 7 lb 5.286 oz Status at Discharge Functional status at discharge: independent ambulation Overall status at discharge: patient is progressing back to baseline Mental Status: mental status grossly normal Speech and Movement: speech and movement normal Mood: congruent mood Affect: normal affect Quality:SDOH Health Related Social Needs: No Data to Display Exam Physical Exam Vital signs: Temp Pulse Resp BP Pulse Ox 98.2 F 69 18 95/57 L 98 05/07/24 08:15 05/07/24 08:15 05/07/24 08:15 05/07/24 08:15 05/07/24 08:15 Vital Signs Reviewed: Yes Notable Details: Afebrile Constitutional Constitutional: no acute distress HEENT Exam HEENT Exam: Normal Neck Exam Neck Exam: Normal Respiratory Exam Respiratory Exam: Normal Cardiovascular Exam Cardiovascular Exam: Normal Abdominal Exam Comments: Mepilex dressing. Dry intact. No abdominal ecchymosis. Fundal Exam Fundus: Below Umbilicus and Firm Rectal Exam Rectal Exam: Not Done Extremities Exam Extremity Exam: Normal and Edema (Bilateral 1+ nonpitting pretibial edema) Skin Exam Skin Exam: Normal Neurological Exam Neurological Exam: Normal Psychiatric Exam Psychiatric Exam: Normal PFSH All Active Problems (Updated 05/05/24 @ 22:03 by Tamia Jose DO) Status post primary low transverse section (Acute) Emergent, bradycardia, 05/05/2024. Male infant. Johnny Normal labor (Acute) Elevated glucose tolerance test (Acute) Anxiety (Chronic) Family history of thyroid disease (Acute) (Acute) Body mass index [BMI] 31.0-31.9, adult (Acute) Elderly multigravida (Acute) Pruritus of in first trimester (Acute) History of delivery (Acute) 34w4d EGA. 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 Placental changes c/w vascular malperfusion. 10/2020. Neg w/u Antiphospholipid AB. [facility] recommends ASA with next . -17-OH-P beginning @16w. 16-20w cervical length. If< 2.5 then cerclage. Medical History (Updated 05/05/24 @ 22:03 by Tamia Jose DO) Bicuspid aortic valve Migraines Migraine Takes NSAIDs prn Heart murmur Bicuspid aortic valve, 10/2020. Aortic stenosis mod. Mean gradient 18mmHg. Surgical History (Updated 05/06/24 @ 00:18 by Tamia Jose DO) H/O wisdom tooth extraction Family History (Updated 04/22/24 @ 11:49 by Beba Larose) Mother Thyroid disorder Anxiety Depression Maternal Aunt Thyroid disorder Maternal Aunt Thyroid disorder Paternal Aunt Thyroid disorder Sister Alcohol use disorder Substance use disorder Brother Alcohol use disorder Substance use disorder Maternal Grandmother Diabetes Type 2 diabetes mellitus Lung cancer Maternal Grandfather Lung cancer Diabetes Brother Diabetes Social History (Updated 05/07/24 @ 09:51 by Ava Bass MD) Smoking/Tobacco Use Status: Never Smoking risk assessment performed?: Yes Alcohol Intake: current Alcohol Intake frequency: holidays/special occasions only Drug use: Never Adopted: No Caregiver/Support person: No Foster care: No Household members: spouse and other Details: Ana Lilia Miranda Emmet Housing: house Number of Children: 2 number of grandchildren: 0 Communication Needs: None Education Level: master's degree Do you need help understanding health information?: Rarely current occupation: pharmacist Pets and animals: Yes (2 Cats, 1 Dog, 10 Chickens and 6 Guineas) Pets and animals: cat(s), dog(s) and farm animals Sexually active: Yes Do you think of yourself as: straight/heterosexual Current gender identity: female What is your relationship status?: How often do you talk on the phone with friends or family?: decline to answer How often do you get together with friends or relatives?: decline to answer Do you belong to any clubs or organized social groups?: no Panel score (0-1 are the most socially isolated patients): 1 What type of physical activity do you participate in: none Linda/Latter-Day: None Special linda needs: No Seatbelt use: always Helmet use: Yes Drive intox or ride w/intox recycling collections driver: No Do you feel safe at home: No Female Reproductive History Menstrual control method: none History History 2 Para 1 Hx # Term Pregnancies 0 Multiple births 0 Hx # Pregnancies 1 Ectopic pregnancies 0 AB induced 0 Hx Number of Living Children 1 AB spontaneous 0 Past Pregnancies Del. Date GA/Weeks # Preg Succ Route Wgt Sex Labor Lgth Anesthesia Location Prov [facility] 12/14/19 34 No Yes vaginal 5 lb [address] Bass 05/05/24 39 No Yes Male [facility] Delivery Date: 12/14/19 Last Updated by: Noelle Deleon PPROM @ 34+3 wks, spont labor. VAVD. [place] Delivery Date: 05/05/24 Last Updated by: Ava Bass MD Nonreassuring heart rate. Johnny DS: Data Vitals/I&O Vitals and I&O: Vital Signs Temperature 98.2 F 05/07/24 08:15 Temperature Source Oral 05/07/24 08:15 Pulse 69 05/07/24 08:15 Pulse Rhythm Regular 05/07/24 08:15 Respiratory Rate 18 05/07/24 08:15 Respiratory Depth Normal 05/07/24 08:15 Blood Pressure 95/57 L 05/07/24 08:15 Blood Pressure Mean 69 05/07/24 08:15 Pulse Oximetry 98 05/07/24 08:15 Respiratory End-tidal CO2 29 05/06/24 00:52 Oxygen Delivery Method Room Air 05/06/24 00:52 Oxygen Flow Rate 0 05/06/24 00:52 Pain Level 3 05/06/24 22:23 Comment BP appropriate for pts typical, asymptomatic. 05/07/24 08:15 Intake & Output 05/06/24 05/06/24 05/07/24 11:59 23:59 11:59 Intake Total 2526 / 2526 550 / 550 Output Total 600 / 3600 3000 / 3600 1700 / 1700 Balance 1926 / -1074 -3000 / -1074 -1150 / -1150 Intake: IV 2376 / 2376 Oral 150 / 150 550 / 550 Output: Urine 3000 / 3000 1700 / 1700 Estimated Blood Loss 600 / 600 Other: Urine Color Pale Dark Kami Yellow Urine Appearance Clear Clear Hematuria Urine Odor None Emesis Description None Voiding Methods Indwelling Catheter
== END 2024-05-07 11:00 | disposition home or self-care (01) | DRG 787 ==
PROVIDERS: Admitting Provider Obstetrics & Gynecology; PCP Nurse Practitioner Family; Visit Provider Obstetrics & Gynecology
PROC: (CPT 59514; principal; 2024-05-05 23:10)
DX: O99.42 Diseases of the circulatory system complicating childbirth (principal); O99.354 Diseases of the nervous system complicating childbirth; Q23.1 Congenital insufficiency of aortic valve; O99.814 Abnormal glucose complicating childbirth; Z37.0 Single live birth; Z3A.40 40 weeks gestation of pregnancy; G43.909 Migraine, unspecified, not intractable, without status migrainosus; O76 Abnormality in fetal heart rate and rhythm complicating labor and delivery; Z87.51 Personal history of pre-term labor
CPT/HCPCS: 59514; 36415; 85027; 86850; 86900; 86901; 85025; 88307; J0665; J1100; J1170; J1885; J2001; J2371; J2405; J2704; J3105

== ENCOUNTER 2024-06-16 03:26 | Outpatient (CLI) | payer BC, SELFPAY ==
[2024-06-16 15:44] LABS: Calculated LDL 102 mg/dL (<100); Cholesterol 164 mg/dL (<200); HDL Cholesterol 55 mg/dL (40-60); TSH (W/Ref FT4) 1.29 uIU/mL (0.36-3.74); Triglyceride 37 mg/dL (<150)
== END 2024-06-16 03:27 | disposition home or self-care (01) ==
PROVIDERS: PCP Nurse Practitioner Family; Visit Provider Nurse Practitioner Family
DX: Z83.49 Family history of other endocrine, nutritional and metabolic diseases (principal); R73.09 Other abnormal glucose; Z00.00 Encounter for general adult medical examination without abnormal findings
CPT/HCPCS: 36415; 80061; 84443

== ENCOUNTER 2024-12-16 00:14 | Outpatient (CLI) | payer BC, SELFPAY ==
--- NOTE | 2024-12-16 07:30 | DI.RAD_ITS ---
Exam(s) XR FOOT RT COMPLETE EXAM: XR FOOT RT COMPLETE CLINICAL HISTORY: Right foot pain,m79.671. TECHNIQUE: 2D digital imaging was performed of the right foot. Three images were obtained. AP, obl ique and lateral views were obtained. COMPARISON: There are no priors for comparison. FINDINGS: BONES: No acute fracture is present. No bony destructive lesion is seen. JOINTS: No dislocation present. The joint spaces are well maintained. SOFT TISSUE: Normal. IMPRESSION: No acute abnormality. DATA REPOSITORY: RADIATION DOSE DELIVERED:
--- NOTE | 2024-12-16 07:30 | DI.RAD_ITS ---
Exam(s) XR FOOT LT COMPLETE EXAM: XR FOOT LT COMPLETE CLINICAL HISTORY: Left foot pain,m79.672. TECHNIQUE: 2D digital imaging was performed of the left foot. Three images were obtained. AP, obli que and lateral views were obtained. COMPARISON: No exams were available for comparison FINDINGS: BONES: No acute fracture is present. No bony destructive lesion is seen. There is a small plantar aj caneal spur. JOINTS: No dislocation present. The joint spaces are well maintained. SOFT TISSUE: Normal. IMPRESSION: Calcaneal spur. DATA REPOSITORY: RADIATION DOSE DELIVERED:
== END 2024-12-16 00:34 ==
LOC: DI 00:15
PROVIDERS: PCP Nurse Practitioner Family; Visit Provider Podiatrist
DX: M79.672 Pain in left foot (principal); M79.671 Pain in right foot
CPT/HCPCS: 73630

== ENCOUNTER 2025-01-06 01:48 | Outpatient (CLI) | payer BC, SELFPAY ==
--- NOTE | 2025-01-06 06:30 | DI.RAD_ITS ---
Exam(s) XR FOOT LT COMPLETE EXAM: XR FOOT LT COMPLETE CLINICAL HISTORY: Left foot pain,M79.672. TECHNIQUE: 2D digital imaging was performed. Three views. COMPARISON: CR XR FOOT LT COMPLETE from 12/16/2024 FINDINGS: BONES: No acute fracture is present. No bony destructive lesion is seen. plantar calcaneal spur ar e again noted. Ossicle adjacent to cuboid. JOINTS: No dislocation present. Plantar arch is maintained. SOFT TISSUE: Normal. IMPRESSION: Plantar calcaneal spur. DATA REPOSITORY: RADIATION DOSE DELIVERED:
== END 2025-01-06 02:08 ==
LOC: DI 01:48
PROVIDERS: PCP Nurse Practitioner Family; Visit Provider Podiatrist
DX: M77.32 Calcaneal spur, left foot (principal)
CPT/HCPCS: 73630

== ENCOUNTER 2025-07-29 02:13 | Outpatient (CLI) | payer BC, SELFPAY ==
--- NOTE | 2025-07-29 12:46 | DI.MAMMO_ITS ---
Exam(s) MAMMO SCREENING EXAM: MAMMO SCREENING CLINICAL HISTORY: screening,z12.39 TECHNIQUE: Bilateral full field digital CC and MLO mammographic images were obtained with 3D tomosynthesis and utilizing computer aided detection (CAD). COMPARISON: Comparison is made with prior examinations. FINDINGS: Masses/Architectural Distortion: No suspicious masses or areas of architectural distortion are present. Microcalcifications: No suspicious pleomorphic-type are seen. Skin Thickening/Nipple Retraction: None. IMPRESSION: 1. No significant interval change with no specific features of malignancy noted. 2. Unless there is more urgent need, screening mammography is recommended, as per [employer] guidelines. BI-RADS Category 1 - Negative Breast Density - Category C - The breast are heterogeneously dense, which may obscure small masses. Breast density Category C or D implies that the patient has dense breast tissue. Dense breast tissue can make it harder to find cancer on a mammogram. Dense breast tissue is also associated with an increased risk of breast cancer. This information about the result of the mammogram report was provided to the patient to raise their awareness. Use this report when you speak with the patient about their risks for breast cancer, which includes their family history. At that time, you may recommend additional screening tests (Ultrasound or MRI) as these tests may add significant information. A negative radiographic report should not delay biopsy if a dominant or clinically suspicious mass is present. Up to ten percent of cancers are not identified on mammography. A negative report may reinforce clinical impression. Adenosis and dense breasts may obscure an underlying neoplasm. False positive reports average 6 to 10%. Patient will receive a letter notifying them of these results.
== END 2025-07-29 02:33 ==
LOC: DI 02:13
PROVIDERS: PCP Nurse Practitioner Family; Visit Provider Obstetrics & Gynecology
DX: Z12.31 Encounter for screening mammogram for malignant neoplasm of breast (principal)
CPT/HCPCS: 77063; 77067